=== PATIENT | female | born 1990 | race Caucasian/White ===

== ENCOUNTER → 2020-02-10 15:19 | Outpatient (CLI) | payer BC, SELFPAY ==
--- NOTE | ~2020-02-10 | US_ITS ---
EXAMINATION: US pelvic complete w TV EXAM DATE: 02/10/2020 15:42 INDICATION: Abnormal uterine bleeding. Prolonged periods. TECHNIQUE: Pelvic transabdominal and transvaginal sonogram was performed. There are multiple graysca le and Doppler images available for interpretation. There is no prior study for comparison. FINDINGS: Uterus measures 8.8 x 3.5 x 4.3 cm, and is morphologically normal. Endometrial stripe ellen sures 7 mm, within normal limits. There is no free pelvic fluid. Right adnexa: The ovary measures 4.2 x 2.3 x 2.6 cm and is morphologically normal. Ovarian vascular f low confirmed. Left adnexa: The ovary measures 4.6 x 3.2 x 3.7 cm and is morphologically normal. Ovarian vascular fl ow confirmed. IMPRESSION: 1. Unremarkable pelvic ultrasound exam. Reviewed, dictated and finalized at location B.
== END ==
PROVIDERS: PCP Family Medicine; Visit Provider Obstetrics & Gynecology
DX: N93.9 Abnormal uterine and vaginal bleeding, unspecified (principal)
CPT/HCPCS: 76830; 76856

== ENCOUNTER → 2020-05-01 15:43 | Outpatient (CLI) | payer BC, SELFPAY ==
--- NOTE | ~2020-05-01 | US_ITS ---
EXAMINATION: US OB <=14 wk fetus w TV DATE: 05/01/2020 16:12 INDICATION: Hypertrophy of the ureters, first trimester dating TECHNIQUE: Real-time pelvic transabdominal and transvaginal ultrasound was performed. COMPARISON: None. FINDINGS: The uterus measures 8.6 x 4.8 x 6.0 cm. There is an intrauterine gestational sac. There is a 10 mm x 3 mm x 6 mm hypoechoic area adjacent to the gestational sac. A yolk sac is identified. Fet al heart motion is identified measuring 120 beats per minute (bpm) by M-mode Doppler. The crown rump length measures 6 , which correlates with an estimated gestational age of 6 weeks and 1 day(s) (+/-) 4 day(s). The right ovary measures 4.1 x 3.2 x 4.3 cm. The left ovary measures 3.2 x 3.6 x 3.3 cm. There is nor mal vascular flow in the ovaries. There is no free fluid in the pelvis. IMPRESSION: 1. Live intrauterine with an estimated gestational age of 6 weeks and 1 day(s) (+/-) 4 day( s) and an estimated delivery date of 12/24/2020. 2. Small subchorionic hematoma. Reviewed, dictated and finalized at location B. IMPRESSION: 1. Live intrauterine with an estimated gestational age of 6 weeks and 1 day(s) (+/-) 4 day(s) and an estimated delivery date of 12/24/2020. 2. Small subchorionic hematoma.
== END ==
PROVIDERS: Visit Provider Obstetrics & Gynecology
DX: N85.2 Hypertrophy of uterus (principal)
CPT/HCPCS: 76801; 76817

== ENCOUNTER 2020-06-10 15:32 | Outpatient (CLI) | payer BC, SELFPAY ==
--- NOTE | ~2020-06-10 | US_ITS ---
EXAMINATION: US OB <= 14 weeks fetus DATE: 06/10/2020 15:59 INDICATION: Vaginal bleeding TECHNIQUE: Real-time transabdominal obstetric ultrasound. FINDINGS: Ultrasound dated 05/01/2020 The uterus measures 11.2 x 8.3 x 7.8 cm. There is an intrauterine gestational sac, with pole id entified. The crown rump length measures 4.99 cm, which correlates with a estimated gestational age of 11 weeks 5 days. heart tones are identified measuring 155 BPM. IMPRESSION: 1. SL IUP with an EGA of 11 weeks, 6 days (EDC by current ultrasound of 12/24/2020). Reviewed, dictated and finalized at location B. IMPRESSION: 1. SL IUP with an EGA of 11 weeks, 6 days (EDC by current ultrasound of 021).
== END 2020-06-10 15:33 | disposition home or self-care (01) ==
PROVIDERS: PCP Family Medicine; Visit Provider Obstetrics & Gynecology
DX: O46.91 Antepartum hemorrhage, unspecified, first trimester (principal); Z3A.11 11 weeks gestation of pregnancy
CPT/HCPCS: 76801

== ENCOUNTER 2020-07-13 11:12 | Outpatient (CLI) | payer BC, SELFPAY ==
[2020-07-13 12:45] LABS: Rubella IgG Antibody 42.7 IU/ML
== END 2020-07-13 11:13 | disposition home or self-care (01) ==
LOC: ANHLAB 11:13
PROVIDERS: PCP Family Medicine; Visit Provider Obstetrics & Gynecology
DX: Z34.92 Encounter for supervision of normal pregnancy, unspecified, second trimester (principal); Z3A.16 16 weeks gestation of pregnancy
CPT/HCPCS: 36415; 84443; 86762

== ENCOUNTER 2020-09-08 12:39 | Outpatient (RCR) | payer BC, SELFPAY ==
[2020-09-08 14:04] LABS: Basophils Absolute Auto 0.1 K/mm3 (0.0-0.1); Basophils Percent Auto 0.4 % (0.2-1.2); Eosinophils Absolute Auto 0.2 K/mm3 (0-0.3); Eosinophils Percent Auto 1.6 % (0-4.4); Hematocrit 35.9 % (37.0-47.0); Hemoglobin 12.2 g/dL (12.0-15.0); Immature Granulocyte Absolute 0.28 K/mm3 (0.00-0.031); Immature Granulocyte Percent A 2.2 % (0-0.5); Lymphocytes Absolute Auto 1.71 K/mm3 (0.9-3.2); Lymphocytes Percent Auto 13.3 % (18.3-44.2); Mean Corpuscular Hemoglobin 31.5 pg (26-34); Mean Corpuscular Volume 92.8 fl (80-100); Mean Platelet Volume 10.5 fl (7.4-10.4); Monocytes Absolute Auto 0.9 K/mm3 (0.1-0.6); Monocytes Percent Auto 7.3 % (2.6-8.5); Neutrophils Absolute Auto 9.6 K/mm3 (1.3-6.7); Neutrophils Percent Auto 75.2 % (45.5-73.1); Platelet Count Result 180 k/mm3 (150-375); Red Blood Count 3.87 M/mm3 (4.2-5.4); Red Cell Distribution Width 13.1 % (11.5-14.5); White Blood Count 12.8 K/mm3 (4.5-10.0)
[2020-09-08 14:18] LABS: Glucose 1 Hour PP 50gm Dose 99 mg/dL
[2020-09-09] MEDS: RHO(D) IMMUNE GLOBULIN 300 MCG SYRINGE IM (13:16)
== END 2020-12-07 23:59 | disposition home or self-care (01) ==
LOC: ANHLAB 12:39
PROVIDERS: PCP Family Medicine; Visit Provider Obstetrics & Gynecology
DX: Z29.13 Encounter for prophylactic Rho(D) immune globulin (principal); O36.0190 Maternal care for anti-D [Rh] antibodies, unspecified trimester, not applicable or unspecified; Z3A.00 Weeks of gestation of pregnancy not specified
CPT/HCPCS: 36415; 82947; 85025; 85461; 90384; 96372; J2790

== ENCOUNTER 2020-11-03 11:55 | Outpatient (CLI) | payer BC, SELFPAY ==
[2020-11-03 12:13] LABS: Basophils Absolute Auto 0.1 K/mm3 (0.0-0.1); Basophils Percent Auto 0.4 % (0.2-1.2); Eosinophils Absolute Auto 0.1 K/mm3 (0-0.3); Eosinophils Percent Auto 1.2 % (0-4.4); Hematocrit 33.5 % (37.0-47.0); Hemoglobin 10.9 g/dL (12.0-15.0); Immature Granulocyte Percent A 1.8 % (0-0.5); Lymphocytes Absolute Auto 1.52 K/mm3 (0.9-3.2); Lymphocytes Percent Auto 13.4 % (18.3-44.2); Mean Corpuscular HGB Conc 32.5 g/dl (32-36); Mean Corpuscular Hemoglobin 29.5 pg (26-34); Mean Corpuscular Volume 90.5 fl (80-100); Monocytes Absolute Auto 1.2 K/mm3 (0.1-0.6); Monocytes Percent Auto 10.5 % (2.6-8.5); Neutrophils Absolute Auto 8.2 K/mm3 (1.3-6.7); Neutrophils Percent Auto 72.7 % (45.5-73.1); Platelet Count Result 172 k/mm3 (150-375); Red Cell Distribution Width 12.9 % (11.5-14.5); White Blood Count 11.3 K/mm3 (4.5-10.0)
[2020-11-03 13:04] LABS: HIV 1/2 Ab P24 Ag Result Negative (Negative)
[2020-11-04 11:30] LABS: Rapid Plasma Reagin Non-Reactive (NonReactive)
== END 2020-11-03 11:56 | disposition home or self-care (01) ==
PROVIDERS: PCP Family Medicine; Visit Provider Obstetrics & Gynecology
DX: Z34.93 Encounter for supervision of normal pregnancy, unspecified, third trimester (principal); Z3A.30 30 weeks gestation of pregnancy
CPT/HCPCS: 36415; 85025; 86592; 86703; G0432

== ENCOUNTER 2020-12-02 13:22 | Outpatient (CLI) | payer BC, SELFPAY ==
[2020-12-02 13:46] VITALS: BP 107/63; PULSE 95
[2020-12-02 14:01] VITALS: BP 110/74; PULSE 97
[2020-12-02 14:01] LABS: Basophils Percent Auto 0.3 % (0.2-1.2); Eosinophils Absolute Auto 0.1 K/mm3 (0-0.3); Eosinophils Percent Auto 0.7 % (0-4.4); Hematocrit 34.8 % (37.0-47.0); Hemoglobin 11.6 g/dL (12.0-15.0); Immature Granulocyte Absolute 0.15 K/mm3 (0.00-0.031); Immature Granulocyte Percent A 1.3 % (0-0.5); Lymphocytes Absolute Auto 1.84 K/mm3 (0.9-3.2); Lymphocytes Percent Auto 15.3 % (18.3-44.2); Mean Corpuscular HGB Conc 33.3 g/dl (32-36); Mean Corpuscular Hemoglobin 30.2 pg (26-34); Mean Corpuscular Volume 90.6 fl (80-100); Mean Platelet Volume 12.2 fl (7.4-10.4); Monocytes Absolute Auto 1.2 K/mm3 (0.1-0.6); Monocytes Percent Auto 9.8 % (2.6-8.5); Neutrophils Absolute Auto 8.7 K/mm3 (1.3-6.7); Neutrophils Percent Auto 72.6 % (45.5-73.1); Platelet Count Result 158 k/mm3 (150-375); Red Blood Count 3.84 M/mm3 (4.2-5.4); Red Cell Distribution Width 17.1 % (11.5-14.5)
[2020-12-02 14:07] LABS: Add Urine Microscopic? YES; Appearance Urine Cloudy (Clear); Bacteria Urine Trace /hpf; Bilirubin Urine Negative (Negative); Blood Urine 3+ (Negative); Color Urine Yellow (Yellow); Glucose Urine UA Negative (Negative); Ketones Urine Negative (Negative); Leukocyte Esterase Ur 1+ LEU/UL (NEGATIVE); Mucus Urine Moderate /lpf; Nitrate Urine Negative (Negative); Protein Urine 1+ mg/dL (Negative); RBC Urine 0-2 /hpf (0-2); Specific Grav Ur 1.031 (1.001-1.035); Squamous Epithelial Cell Urine Many /hpf (Few); Urobilinogen Urine Negative mg/dL (<2.0)
[2020-12-02 14:16] VITALS: BP 102/69; PULSE 93
[2020-12-02 14:17] VITALS: BP 102/69; PULSE 94
[2020-12-02 14:17] LABS: Alanine Aminotransferase 23 U/L (4-35); Albumin Level 3.3 g/dL (3.5-5.1); Alkaline Phosphatase 115 U/L (38-126); Anion Gap 2 mmol/L (8-16); Aspartate Amino Transferase 33 U/L (14-36); Bilirubin,Total 0.2 mg/dL (0.2-1.3); Blood Urea Nitrogen 13 mg/dL (7-17); Calcium 8.7 mg/dL (8.4-10.2); Carbon Dioxide 24 mmol/L (22-30); Chloride 108 mmol/L (98-107); Estimated Glomerular Filt Rate > 60; Glucose 77 mg/dL (65-105); Potassium 3.5 mmol/L (3.4-5.0); Sodium 134 mmol/L (137-145)
[2020-12-02 14:21] LABS: Creatinine Urine 193.5 mg/dL; Total Protein Urine Random 16 mg/dL; Ur Ttl Prot Creatinine Ratio 0.08 mg/mg (0-0.20)
[2020-12-02 14:30] VITALS: BP 108/75; PULSE 96
--- NOTE | 2020-12-02 14:48 | PC.NURSE ---
called,reported labs. Orders received to discharge pt home.
== END 2020-12-02 14:56 | disposition home or self-care (01) ==
LOC: ANHOBOP 13:27 → ANHLDR 13:27
PROVIDERS: PCP Family Medicine; Visit Provider Obstetrics & Gynecology
DX: O13.9 Gestational [pregnancy-induced] hypertension without significant proteinuria, unspecified trimester (principal); Z3A.00 Weeks of gestation of pregnancy not specified
CPT/HCPCS: 36415; 59025; 80053; 81001; 82570; 84156; 84550; 85025; 87086; 99199

== ENCOUNTER 2020-12-07 10:25 | Inpatient (IN) | payer BC, SELFPAY ==
[2020-12-07] VITALS (124 sets, daily range): BP systolic 105–163; BP diastolic 51–136; PULSE 77–259; RESP 18–20; TEMP 36.3–37.3; O2SAT 75–100; BMI 25.9
[2020-12-07] MEDS: LACTATED RINGERS 1,000 ML 125 ML IV CONT ×3 (11:13→18:54)
[2020-12-07] MEDS: OXYTOCIN 30 UNITS/NS 500 ML 30 UNITS/500 ML BAG 6 UNITS IV CONT (11:14)
[2020-12-07 11:23] LABS: Basophils Percent Auto 0.3 % (0.2-1.2); Eosinophils Percent Auto 0.3 % (0-4.4); Hematocrit 38.3 % (37.0-47.0); Hemoglobin 12.6 g/dL (12.0-15.0); Immature Granulocyte Absolute 0.12 K/mm3 (0.00-0.031); Immature Granulocyte Percent A 1.1 % (0-0.5); Lymphocytes Absolute Auto 1.54 K/mm3 (0.9-3.2); Lymphocytes Percent Auto 14.3 % (18.3-44.2); Mean Corpuscular HGB Conc 32.9 g/dl (32-36); Mean Corpuscular Hemoglobin 30.4 pg (26-34); Mean Corpuscular Volume 92.3 fl (80-100); Mean Platelet Volume 12.1 fl (7.4-10.4); Monocytes Percent Auto 9.5 % (2.6-8.5); Neutrophils Percent Auto 74.5 % (45.5-73.1); Platelet Count Result 149 k/mm3 (150-375); Red Blood Count 4.15 M/mm3 (4.2-5.4); White Blood Count 10.8 K/mm3 (4.5-10.0)
[2020-12-07 11:34] LABS: Alanine Aminotransferase 24 U/L (4-35); Albumin Level 3.5 g/dL (3.5-5.1); Alkaline Phosphatase 119 U/L (38-126); Anion Gap 6 mmol/L (8-16); Aspartate Amino Transferase 32 U/L (14-36); Bilirubin,Total 0.2 mg/dL (0.2-1.3); Blood Urea Nitrogen 10 mg/dL (7-17); Calcium 8.6 mg/dL (8.4-10.2); Carbon Dioxide 22 mmol/L (22-30); Chloride 108 mmol/L (98-107); Estimated CRCL calculation 95 ml/min; Estimated Glomerular Filt Rate > 60; Glucose 70 mg/dL (65-105); Potassium 3.7 mmol/L (3.4-5.0); Sodium 136 mmol/L (137-145); Uric Acid 4.6 mg/dL (2.5-7.5)
--- NOTE | 2020-12-07 12:09 | LDADM ---
This patient, Latha Kennedy, was admitted to Labor/Delivery/Recovery 109 on 12/07/20 at 10:25. Plans for labor, pain management and were discussed with patient. Patient/family oriented to hospital policies and general routines including ID bracelet, bed and alarms, visiting hours, pain management, procedures, bathroom and other care routines, personal items, smoking policy, room service/diet and guest tray routines, security routines, and visiting hours. Patient/Family are encouraged to report perceived risks to care and to ask questions if they do not understand what they are told or what they should do. See OBIX for further documentation.
--- NOTE | 2020-12-07 12:19 | WPDANESEPP ---
Anes - Eval Pre Procedure Procedure: labor epidural Date/Time: 12/07/20 12:19 Pre Op Diagnosis: Induction of Labor Patient Data Age: 30 Gender: F Height: 1.68 m Weight: 73 kg Last Vital Signs Temp 37.3 C 12/07/20 10:46 Pulse 100 12/07/20 12:15 BP 122/72 12/07/20 12:15 Allergies Allergy/AdvReac Type Severity Reaction Status Date / Time trimethoprim Allergy Intermediate Hives Verified 12/07/20 08:58 Sulfa (Sulfonamide Allergy Unknown shortness Verified 12/07/20 08:58 Antibiotics) of breath, sweating, nausea Home Medications Medication Instructions Recorded Confirmed Type vitamins no.147-iron 1 tablet PO DAILY 05/22/20 11/27/20 History gluconate 13 mg-folic acid 1 mg tablet diphth,pertus(acell),tetanus 2.5 0.5 ml IM ONCE #0.5 ml 10/20/20 11/27/20 Rx Lf unit-8 mcg-5 Lf/0.5 mL IM susp hydrocortisone acetate 25 mg 25 mg RECTAL DAILY PRN #12 ea 10/20/20 11/27/20 Rx rectal suppository ferrous sulfate 325 mg PO BID 11/24/20 11/27/20 History Laboratory Tests 12/07/20 12/07/20 12/07/20 11:06 11:06 11:06 WBC 10.8 K/mm3 H K/mm3 (4.5-10.0) RBC 4.15 M/mm3 L M/mm3 (4.2-5.4) Hgb 12.6 g/dL g/dL (12.0-15.0) Hct 38.3 % % (37.0-47.0) MCV 92.3 fl fl (80-100) MCH 30.4 pg pg (26-34) MCHC 32.9 g/dl g/dl (32-36) RDW 18.0 % H % (11.5-14.5) Plt Count 149 k/mm3 L k/mm3 (150-375) MPV 12.1 fl H fl (7.4-10.4) Immature Gran % (Auto) 1.1 % H % (0-0.5) Neut % (Auto) 74.5 % H % (45.5-73.1) Lymph % (Auto) 14.3 % L % (18.3-44.2) [place] % (Auto) 9.5 % H % (2.6-8.5) Eos % (Auto) 0.3 % % (0-4.4) Baso % (Auto) 0.3 % % (0.2-1.2) Lymph # (Auto) 1.54 K/mm3 K/mm3 (0.9-3.2) [place] # (Auto) 1.0 K/mm3 H K/mm3 (0.1-0.6) Eos # (Auto) 0.0 K/mm3 K/mm3 (0-0.3) Baso # (Auto) 0.0 K/mm3 K/mm3 (0.0-0.1) Abs Immat Gran (auto) 0.12 K/mm3 H K/mm3 (0.00-0.031) Absolute Neuts (auto) 8.0 K/mm3 H K/mm3 (1.3-6.7) Absolute Nucleated RBC 0.0 K/mm3 K/mm3 (0.0-0.012) Nucleated RBC % 0.0 % % (0.0-0.2) Sodium 136 mmol/L L mmol/L (137-145) Potassium 3.7 mmol/L mmol/L (3.4-5.0) Chloride 108 mmol/L H mmol/L (98-107) Carbon Dioxide 22 mmol/L mmol/L (22-30) Anion Gap 6 mmol/L L mmol/L (8-16) BUN 10 mg/dL mg/dL (7-17) Creatinine 0.70 mg/dL mg/dL (0.7-1.0) Estim Creat Clear Calc 95 ml/min ml/min Estimated GFR > 60 (59 - ) Glucose 70 mg/dL mg/dL (65-105) Uric Acid 4.6 mg/dL mg/dL (2.5-7.5) Calcium 8.6 mg/dL mg/dL (8.4-10.2) Total Bilirubin 0.2 mg/dL mg/dL (0.2-1.3) AST 32 U/L U/L (14-36) ALT 24 U/L U/L (4-35) Alkaline Phosphatase 119 U/L U/L (38-126) Total Protein 7.0 g/dL g/dL (6.3-8.2) Albumin 3.5 g/dL g/dL (3.5-5.1) RPR Pending Blood Type Antibody Screen 12/07/20 12/07/20 11:06 11:06 WBC RBC Hgb Hct MCV MCH MCHC RDW Plt Count MPV Immature Gran % (Auto) Neut % (Auto) Lymph % (Auto) [place] % (Auto) Eos % (Auto) Baso % (Auto) Lymph # (Auto) [place] # (Auto) Eos # (Auto) Baso # (Auto) Abs Immat Gran (auto) Absolute Neuts (auto) Absolute Nucleated RBC Nucleated RBC % Sodium Cancelled Potassium Cancelled Chloride Cancelled Carbon Dioxide Cancelled Anion Gap Cancelled BUN Cancelled Creatinine Cancelled Estim Creat Clear
[2020-12-07 13:01] LABS: Creatinine Urine 49.8 mg/dL; Total Protein Urine Random 9 mg/dL; Ur Ttl Prot Creatinine Ratio 0.18 mg/mg (0-0.20)
--- NOTE | 2020-12-07 15:57 | PM.IMHP ---
H&P: HPI History of Present Illness Date/Time: 12/07/20 15:57 Patient at 37 2/7 weeks presented for medical induction of labor for gestational hypertension. She denies headache scotomata or RUQ pain. BP last week 140/80 in office. Labs normal. BP in office today 140/84. PNC uncomplicated. Labs reviewed. GBS negative. Chief Complaint: Hypertension. Review of Systems Review of Systems: All systems reviewed & are unremarkable except as noted in HPI and below Constitutional: Constitutional: Reports no additional constitutional complaints and Denies headache(s) Eyes: Eyes: Denies spots in vision ENT: Reports system reviewed and no additional complaints, except as documented and Denies headache(s) Cardiovascular: Cardiovascular: Denies chest pain and Denies dyspnea Respiratory: Respiratory: Denies dyspnea Gastrointestinal: Gastrointestinal: Reports no additional gastrointestinal complaints Genitourinary: Genitourinary: Reports amenorrhea Musculoskeletal: Musculoskeletal: Reports no additional musculoskeletal complaints Integumentary/Breasts: Skin/Breast: Denies breast mass and Denies rash Neurologic: Denies headache(s) Psychiatric: Psychiatric: Reports no additional psychiatric complaints [facility] Past Medical History Medical History Anxiety Gestational hypertension Surgical History Surgical History History of tonsillectomy Family History Family History Father Diabetes mellitus Hypertension Cerebrovascular accident Congestive heart failure Mother Endometriosis Hyperglycemia Osteoporosis Hypotension Social History Social History Smoking status: Never smoker Second hand tobacco smoke exposure: No Alcohol intake: former Substance use: never Spiritual care concerns: No Meds Home Medications and Allergies Home Medications Medication Instructions Recorded Confirmed Type vitamins no.147-iron 1 tablet PO DAILY 05/22/20 12/07/20 History gluconate 13 mg-folic acid 1 mg tablet diphth,pertus(acell),tetanus 2.5 0.5 ml IM ONCE #0.5 ml 10/20/20 12/07/20 Rx Lf unit-8 mcg-5 Lf/0.5 mL IM susp hydrocortisone acetate 25 mg 25 mg RECTAL DAILY PRN #12 ea 10/20/20 12/07/20 Rx rectal suppository ferrous sulfate 325 mg PO BID 11/24/20 12/07/20 History Allergies Allergy/AdvReac Type Severity Reaction Status Date / Time trimethoprim Allergy Intermediate Hives Verified 12/07/20 08:58 Sulfa (Sulfonamide Allergy Unknown shortness Verified 12/07/20 08:58 Antibiotics) of breath, sweating, nausea Vital Signs Vital Signs - 24 hr 12/07/20 10:46 12/07/20 11:15 12/07/20 11:30 Temperature 99.2 F Pulse Rate 110 H 112 H Blood Pressure 128/84 135/84 12/07/20 11:45 12/07/20 12:00 12/07/20 12:15 Temperature Pulse Rate 105 H 105 H 100 Blood Pressure 117/86 123/81 122/72 12/07/20 12:30 12/07/20 12:45 12/07/20 13:00 Temperature 98.5 F Pulse Rate 101 H 105 H 110 H Blood Pressure 123/74 122/78 129/80 12/07/20 13:15 12/07/20 13:30 12/07/20 13:45 Temperature Pulse Rate 103 H 108 H 94 Blood Pressure 127/79 123/102 H 121/76 12/07/20 14:00 12/07/20 14:15 12/07/20 14:30 Temperature 98.2 F Pulse Rate 103 H 99 97 Blood Pressure 119/82 121/75 135/87 12/07/20 14:45 12/07/20 15:00 12/07/20 15:15 Temperature Pulse Rate 101 H 103 H 96 Blood Pressure 121/77 125/75 122/81 12/07/20 15:30 12/07/20 15:45 Temperature Pulse Rate 130 H 109 H Blood Pressure 120/85 119/80 Exam Const: General: no acute distress Eyes: General: appearance normal, both eyes and all related structures Resp: Effort & Inspection: normal respiratory effort Cardio: Rate: regular rate GI: Other: Gravid no fundal ten
[2020-12-07] MEDS: FAMOTIDINE 20 MG/2 ML VIAL IV PUSH (20:41)
--- NOTE | 2020-12-07 23:39 | PM.OBPRVD ---
OB - Delivery Note Procedure Delivery date: 12/07/20 Procedure: Spontaneous vaginal delivery events: Induced HTN Intrapartal events: None Induction method: per pitocin protocol Delivery augmentation: rupture of membranes Delivery monitor: external FHT Route of delivery: Episiotomy description: Left Mediolateral (for deceleration of heart rate to 70.) Laceration Description: Labial (small right inner labial) Delivery repair: vicryl (3.0 vicryl) Specimen: Yes (placenta and cord) Quantitative Blood Loss (ml): 250 Anesthesia type: Epidural Disposition: floor Complications: None Narrative: Patient admitted for [facility] for gestational hypertension. Labs normal. Cervix on admission 2/70%/-2. Pitocin initiated. She had AROM clear at approximately 1640. Clear fluid. At that time cervix was 3/75% -2. She progressed into active labor. She received an epidural and a second epidural needed to be placed. She then had adequate analgesia. She progressed to complete. She pushed for 19minutes. tracing with heart rate deceleration to 70. Left mediolateral episiotomy performed and delivered. There was a left compound hand presentation and the cord was present also. It was not a nuchal cord. The rest of the was delivered. was vigorously crying upon delivery and placed on maternal abdomen. Delayed cord clamping for 30sec until cord apulsatile. Cord gases and cord blood obtained. Placenta delivered spontaneously and intact. The insertion was marginal. Will send to pathology. Episiotomy repaired with a continuous stitch of 3.0 vicryl. She had a small right inner labia minora tear which was hemostatic and did not require suture repair. She tolerated procedure well. [place] Baby Date of : 12/07/20 Time of : 23:09 Weeks of gestation at delivery: 37 Infant gender: Female Weight (pounds): 6 Weight (ounces): 3 presentation: vertex (left hand compound presentation) position: Right Occiput Anterior Placenta delivery description: Spontaneous (Marginal cord insertion) score one minute: 9 score five minutes: 9
[2020-12-07] MEDS: OXYTOCIN 30 UNITS/NS 500 ML 30 UNITS/500 ML BAG 125 UNITS IV CONT (23:42)
[2020-12-08] VITALS (12 sets, daily range): BP systolic 113–137; BP diastolic 69–86; PULSE 84–116; RESP 16–18; TEMP 36.4–37; O2SAT 98–100
[2020-12-08] MEDS: WITCH HAZEL 40 PADS 1 PAD TOPICAL (01:04)
[2020-12-08] MEDS: IBUPROFEN 600 MG TABLET PO ×4 (01:04→19:38)
[2020-12-08] MEDS: BENZOCAINE 20% AER SPR (*SP) 56 GM CAN 1 SPRAY TOPICAL (01:04)
[2020-12-08] MEDS: DIBUCAINE 1% OINTMENT 30 GM TUBE 1 APPLIC TOPICAL ×2 (01:04→06:30)
[2020-12-08] MEDS: ONDANSETRON INJ 4 MG/2 ML VIAL IV PUSH (02:32)
--- NOTE | 2020-12-08 03:11 | OBPPTRN ---
Patient transferred to post room #280 via wheelchair. Support person, Larry, present. Oriented to unit, room, information board, rooming in, admission packet and security measures. Patient verbalizes understanding.
[2020-12-08 03:18] LABS: Hematocrit 34.2 % (37.0-47.0); Hemoglobin 11.3 g/dL (12.0-15.0)
[2020-12-08] MEDS: LANOLIN (LANSINOH) 7.5 GM CREAM 1 APPLIC TOPICAL (06:30)
--- NOTE | 2020-12-08 08:06 | PM.OBPNVD ---
OB - PN: Subj Subjective Date/time seen: 12/08/20 08:06 Patient comments: no complaints, pain well controlled and other (Lochia similar to heavy menses. No blood clots) [place] baby status: doing well Narrative: She denies KENNEDY, visual changes. OB - PN: Obj Data Labs CBC & Chem 7: 12/08/20 03:04 12/07/20 11:06 Labs: Laboratory Results - last 24 hr 12/07/20 12/07/20 12/07/20 11:06 11:06 11:06 WBC 10.8 H RBC 4.15 L Hgb 12.6 Hct 38.3 MCV 92.3 MCH 30.4 MCHC 32.9 RDW 18.0 H Plt Count 149 L MPV 12.1 H Immature Gran % (Auto) 1.1 H Neut % (Auto) 74.5 H Lymph % (Auto) 14.3 L [place] % (Auto) 9.5 H Eos % (Auto) 0.3 Baso % (Auto) 0.3 Lymph # (Auto) 1.54 [place] # (Auto) 1.0 H Eos # (Auto) 0.0 Baso # (Auto) 0.0 Abs Immat Gran (auto) 0.12 H Absolute Neuts (auto) 8.0 H Absolute Nucleated RBC 0.0 Nucleated RBC % 0.0 Sodium 136 L Potassium 3.7 Chloride 108 H Carbon Dioxide 22 Anion Gap 6 L BUN 10 Creatinine 0.70 Estim Creat Clear Calc 95 Estimated GFR > 60 Glucose 70 Uric Acid 4.6 Calcium 8.6 Total Bilirubin 0.2 AST 32 ALT 24 Alkaline Phosphatase 119 Total Protein 7.0 Albumin 3.5 U Random Total Protein Urine Creatinine Protein/Creat Ratio 2 Blood Type O Negative Antibody Screen Negative 12/07/20 12/07/20 12/08/20 11:06 12:43 03:04 WBC RBC Hgb 11.3 L Hct 34.2 L MCV MCH MCHC RDW Plt Count MPV Immature Gran % (Auto) Neut % (Auto) Lymph % (Auto) [place] % (Auto) Eos % (Auto) Baso % (Auto) Lymph # (Auto) [place] # (Auto) Eos # (Auto) Baso # (Auto) Abs Immat Gran (auto) Absolute Neuts (auto) Absolute Nucleated RBC Nucleated RBC % Sodium Cancelled Potassium Cancelled Chloride Cancelled Carbon Dioxide Cancelled Anion Gap Cancelled BUN Cancelled Creatinine Cancelled Estim Creat Clear Calc Cancelled Estimated GFR Cancelled Glucose Cancelled Uric Acid Calcium Cancelled Total Bilirubin Cancelled AST Cancelled ALT Cancelled Alkaline Phosphatase Cancelled Total Protein Cancelled Albumin Cancelled U Random Total Protein 9 Urine Creatinine 49.8 Protein/Creat Ratio 2 0.18 Blood Type Antibody Screen OB - PN A/P Assessment and Plan (1) Gestational hypertension: Code(s): O13.9 - Gestational [-induced] hypertension without significant proteinuria, unspecified trimester Status: Acute Assessment and Plan: BP normal since delivery and asymptomatic. Continue to observe Plan day: 1 (s/p vaginal delivery, doing well) Plan: routine care Time Spent With Patient Time: Total time spent is greater than 50% in coordination of care (as documented) at patient's floor/unit and/or counseling patient: Exam Const: General: no acute distress GI: Inspection: other (Fundus firm and nontender at umbilicus) GI Palp: Yes Soft to palpation and No Tenderness to palpation present (GI) Extrem: General: no edema
--- NOTE | 2020-12-08 09:20 | PC.NURSE ---
Mother called out for assist with feeding. Consulted with patient, mother reports has fed well since . Mother has nipple discomfort with and latch during Reviewed nipple care of lanolin, warm compresses several times per day as needed. Both nipples are slightly reddened. Reviewed feeding cues, frequencies, duration of feedings, feeding elimination flow sheet, and signs of adequate intake. Demonstrated stimulation techniques to wake for feeding. Assisted with to breast. Reviewed positioning/alignment in cross cradle, holding breast in U hold and guided asymmetrical latch on. Infant very sleepy attempt for 15 minutes with no latch. skin to skin for 30 and attempted again. remains sleepy. Suggested to give a small amount of formula to infant mouth and to nipple to entice to suckle. was able to latch within a few attempts. Infant nursed eagerly, with steady draws and frequent swallowing noted. Reviewed signs of a correct latch, effective nursing and suck swallow ratio. Mother reported tenderness at times, infant had slipped to shallow latch. Demonstrated how to adjust latch more deeply while feeding. Mother quickly reports she can feel infant is latched more deeply and has minimal tenderness. Suggested to stimulate while feeding to keep infant awake and nursing effectively for increased stimulation and increased intake. Instructed mother to call out for RN assistance if she is unable to latch for feeding or she has discomfort with nursing. Instructed feeding should be initiated three hours from start of last feeding or if feeding cues are noted before. Mother voiced understanding of information shared.
[2020-12-08] MEDS: ACETAMINOPHEN 325 MG TABLET 650 MG PO ×2 (10:46→17:00)
[2020-12-08] MEDS: MULTIVIT/MIN/PREN/FOL AC/IRON TABLET 1 TAB PO (10:46)
[2020-12-08 13:25] LABS: Rapid Plasma Reagin Non-Reactive (NonReactive)
--- NOTE | 2020-12-08 13:25 | PC.NURSE ---
Mother called out for assist with feeding. FOB has supplemented 9 mls of formula, reporting was sleepy and they attempted to wake to feed with no successful latch. Demonstrated stimulation techniques to wake for feeding. Several minutes to wake infant. Assisted with to breast. Reviewed positioning/alignment in cross cradle, holding breast in U hold and guided asymmetrical latch on. Infant sleepy attempt for 5 minutes with no latch. Infant was able to latch within a few attempts. nursed eagerly, with steady draws and frequent swallowing noted. Reviewed signs of a correct latch, effective nursing and suck swallow ratio. Mother reported tenderness at times, had slipped to shallow latch. Demonstrated how to adjust latch more deeply while feeding. Mother can feel infant is latched more deeply and has minimal tenderness. Suggested to stimulate infant while feeding to keep awake and nursing effectively for increased stimulation and increased intake. Instructed mother to call out for RN assistance if she is unable to latch for feeding or she has discomfort with nursing. Instructed feeding should be initiated three hours from start of last feeding or if feeding cues are noted before. Mother voiced understanding of information shared.
--- NOTE | 2020-12-08 13:44 | WPDANLDPN2 ---
Anes-Prog Note L&D Date/Time: 12/08/20 13:44 Comfortable throughout: labor and delivery Neuraxial method: epidural Epidural/Spinal procedure site: clean & non-tender Neuro status: Neuro function grossly intact. Cardiovascular status: normal Respiratory status: normal Airway patency: baseline Mental status: baseline Post-Op hydration status: normal Vital Signs: Last Vital Signs Temp 37.0 C 12/08/20 12:05 Pulse 85 12/08/20 12:05 Resp 18 12/08/20 12:05 BP 113/79 12/08/20 12:05 Pulse Ox 99 12/08/20 12:05 Pain score (VAS): 0 I/O: Intake & Output 12/07/20 12/08/20 12/08/20 23:59 07:59 15:59 Intake Total 2900 900 Output Total 400 78 Balance 2500 822 Post-procedural complaints: none Patient feedback: Patient satisfied with anesthetic care.
[2020-12-08] MEDS: DOCUSATE SODIUM 100 MG CAPSULE PO (19:37)
[2020-12-09] MEDS: ACETAMINOPHEN 325 MG TABLET 650 MG PO (03:25)
[2020-12-09] MEDS: IBUPROFEN 600 MG TABLET PO ×2 (03:25→10:25)
[2020-12-09 07:45] VITALS: BP 110/67; PULSE 84; RESP 16; TEMP 36.9; O2SAT 100
--- NOTE | 2020-12-09 09:01 | P.PNOB_ITS ---
OB - PN: Subj Subjective Date/time seen: 12/09/20 09:01 Her pain is better. Lochia decreasing. No headache, scotomata or right upper quad pain. Patient comments: pain well controlled, tolerating diet and other (Decreasing lochia.) baby status: doing well and nursing well [place] feeding status: exclusively breast feeding OB - PN: Obj Data Labs CBC & Chem 7: 12/08/20 03:04 12/07/20 11:06 Labs: Laboratory Results - last 24 hr 12/07/20 11:06 RPR Non-reactive OB - PN A/P Plan day: 2 Plan: discharge home and other Comments: Patient doing well. Follow up 4-6 weeks. Discharge instructions provided. Time Spent With Patient Time: Total time spent is greater than 50% in coordination of care (as documented) at patient's floor/unit and/or counseling patient: Time with patient: less than 15 minutes Exam Psych: Affect: normal affect Other: Abd: fundus firm below umbilicus, nontender Ext: nontender, 1+ edema bilat
--- NOTE | 2020-12-09 09:04 | PM.OBDSVD ---
DS: Admitting Diagnosis Admitting Diagnosis Admitting Diagnosis: Gestational hypertension DS: Discharge Diagnosis Discharge Diagnosis (1) Delivery normal: Code(s): O80 - Encounter for full-term uncomplicated delivery Status: Acute (2) Gestational hypertension: Code(s): O13.9 - Gestational [-induced] hypertension without significant proteinuria, unspecified trimester Status: Acute OB - DS: Summary Hospital Course Time spent discussing smoking cessation with patient: 3 to 10 minutes OB Procedures : PIH Mgmt OB Procedures Intrapartum: Spontaneous Vag Delivery OB Procedures: : None and RHo (D) lg Peripartum Data Delivery Method: Natural Vaginal Episiotomy description: Left Mediolateral complications: none Time Spent with Patient Time attestation: Total time spent providing and/or coordinating discharge services: DS: Data Data Completed and Pending Pending studies at discharge: Pending at discharge 12/07/20 23:14 Surgical [PTH] Routine Labs on day of discharge: Labs from last 24 hours 12/07/20 11:06 RPR Non-reactive Discharge Plan Discharge Attending physician on discharge: Ralph Loco Consulting providers: Marycruz Cabrera Discharging Clinician: Ralph Loco Anticipated Discharge Date/Time: 12/09/20 08:45 Patient Disposition: Home, Self-Care Activity: may shower, no straining and pelvic rest Diet: regular Discharge Instructions: Pelvic rest for 4-6 weeks. May take over the counter Ibuprofen or Tylenol for pain. Call if saturating more than a pad an hour, leg redness, pain and swelling, temperature>100.4. No strenuous activity. Take one vitamin daily. Patient Instructions: Antibiotic Form Stand Alone Forms: General Discharge Information Follow-up/Referrals: Ralph Loco MD [Physician] - 1 Week (Call for appointment) Discharge Medications: Discontinued 147-iron gluc-folic 13 mg iron- 1 mg tablet 1 tablet PO DAILY RF: 0 hydrocortisone acetate [Anusol-HC] 25 mg suppository 25 mg RECTAL DAILY PRN (Reason: hemorrhoids) Qty: 12 RF: 0 ferrous sulfate 325 mg (65 mg iron) Tablet,Delayed Release (Dr/Ec) 325 mg PO BID RF: 0 Date of admission: 12/07/20 10:25 Primary Care Provider: Andria,Kenney A. Admitting Provider: Ralph Loco Attending physician on admission: Ralph Loco Condition: Stable
[2020-12-09] MEDS: DOCUSATE SODIUM 100 MG CAPSULE PO (10:26)
[2020-12-09] MEDS: MULTIVIT/MIN/PREN/FOL AC/IRON TABLET 1 TAB PO (10:26)
--- NOTE | 2020-12-09 10:40 | PC.NURSE ---
Consult with pt., mother reports infant is sleepy at times and will eagerly latch for other feedings. Assured mother this is normal is 37 weeks and may take several days for to wake on her own and be consistent with feedings. Advised to continue to wake to feed each feeding and stimulate while feeding to keep awake and effectively nursing. Mother had many questions on supplementation. Advised infant is WNL on all signs of adequate intake, and supplementation is her choice. Suggested if she chooses to supplement to breastfeed first then offer 15-20 mls of supplement and to supplement if she infant does not beastfeed by 4 hours from last feeding or has less than required output. Observed this feeding, mother is able to independently latch infant with appropriate positioning/alignment. She denies any nipple discomfort, is feeding as required and waking infant to feed if needed. is able to maintain latch, nursing with rhythmic draws and occasional swallowing noted. Mother stimulates to keep awake and nursing. at least 8 effective feedings in the past 24 hours, and is currently meeting outcomes for weight, output, jaundice and feeding frequencies. Mother states she feels confident to continue effective at home. Reviewed transition to breast milk, signs of adequate intake, and engorgement/relief. Mother has a breastpump for home use. Advised to pump if is not feeding every 3 hours. Instructed to call ICP if intake/output less than required. Reviewed regular medications mother is taking. Information provided per [facility]. Reviewed community resources on the [facility] website and in the Mom/Baby guide. Information on outpatient services provided. Mother has no further questions at this time.
[2020-12-11 11:06] VITALS: BP 127/85; PULSE 86; RESP 16; TEMP 36.4; O2SAT 100
== END 2020-12-09 12:10 | disposition home or self-care (01) | DRG 807 ==
LOC: ANHLDR 10:29 → ANHOB2 12-08 02:38
PROVIDERS: Admitting Provider Obstetrics & Gynecology; PCP Family Medicine; Visit Provider Obstetrics & Gynecology
DX: O13.4 Gestational [pregnancy-induced] hypertension without significant proteinuria, complicating childbirth (principal); Z37.0 Single live birth; Z3A.37 37 weeks gestation of pregnancy; O99.344 Other mental disorders complicating childbirth; F41.9 Anxiety disorder, unspecified; O36.8330 Maternal care for abnormalities of the fetal heart rate or rhythm, third trimester, not applicable or unspecified; O43.123 Velamentous insertion of umbilical cord, third trimester; O32.6XX0 Maternal care for compound presentation, not applicable or unspecified
CPT/HCPCS: 36415; 80053; 82570; 84156; 84550; 85014; 85018; 85025; 86592; 86850; 86900; 86901; 88307; A9270; J2405; J2590; J2795; J7120

== ENCOUNTER 2021-12-23 09:40 | Outpatient (CLI) | payer BC, SELFPAY ==
--- NOTE | ~2021-12-23 | US_ITS ---
EXAMINATION: US OB <=14 wk fetus w TV DATE: 12/23/2021 10:50 INDICATION: Bleeding during first trimester of . TECHNIQUE: Real-time pelvic ultrasound utilizing both a transvaginal and transabdominal probe was pe rformed. The interpreting radiologist was not present for the study. COMPARISON: None. FINDINGS: The uterus measures 9.4 x 5.0 x 6.1 cm. There is an intrauterine gestational sac. A yolk sac and fet al pole are identified. The crown rump length measures 5 mm, which correlates with an estimated gesta tional age of 6 weeks and 1 days. heart motion is identified measuring 115 beats per minute (bp m) by M-mode Doppler. 2.4 x 1.9 x 0.3 cm mixed anechoic and hypoechoic subchorionic hematoma along th e anterior inferior margin of the gestational sac. The right ovary measures 5.2 x 2.7 x 2.5 cm. Irregular thick-walled likely corpus luteum cyst with 1. 8 cm central anechoic region in the right ovary. The left ovary measures 3.0 x 1.6 x 1.5 cm. Vascular flow identified in both ovaries on color Doppler. There is no free fluid in the pelvis. IMPRESSION: 1. Single living fetus with heart rate of 115 bpm. 2. Gestational age by ultrasound of 6 weeks 1 day(s) +/- or day(s) with ultrasound estimated date of delivery ([facility]) of 08/17/2022. 2. 2.4 x 1.9 x 0.3 cm subchorionic hematoma. Reviewed, dictated and finalized at location A. IMPRESSION: 1. Single living fetus with heart rate of 115 bpm. 2. Gestational age by ultrasound of 6 weeks 1 day(s) +/- or day(s) with ultras ound estimated date of delivery ([facility]ENEZER) of 08/17/2022. 2. 2.4 x 1.9 x 0.3 cm subchorionic hematoma.
== END 2021-12-23 09:41 | disposition home or self-care (01) ==
PROVIDERS: PCP Family Medicine; Visit Provider Obstetrics & Gynecology
DX: O20.0 Threatened abortion (principal); Z3A.01 Less than 8 weeks gestation of pregnancy
CPT/HCPCS: 76801; 76817

== ENCOUNTER 2021-12-28 13:28 | Outpatient (CLI) | payer BC, SELFPAY ==
[2021-12-29] MEDS: RHO(D) IMMUNE GLOBULIN 300 MCG/2 ML SYRINGE IM (09:29)
== END 2021-12-28 13:29 | disposition home or self-care (01) ==
LOC: ANHLAB 13:30
PROVIDERS: PCP Family Medicine; Visit Provider Obstetrics & Gynecology
DX: O36.0990 Maternal care for other rhesus isoimmunization, unspecified trimester, not applicable or unspecified (principal); O20.9 Hemorrhage in early pregnancy, unspecified; Z3A.00 Weeks of gestation of pregnancy not specified
CPT/HCPCS: 36415; 85461; 90384; 96372; J2790

== ENCOUNTER 2022-05-12 10:25 | Outpatient (CLI) | payer BC, SELFPAY ==
[2022-05-12 11:47] LABS: Basophils Absolute Auto 0.1 K/mm3 (0.0-0.1); Basophils Percent Auto 0.6 % (0.2-1.2); Eosinophils Absolute Auto 0.3 K/mm3 (0-0.3); Eosinophils Percent Auto 2.2 % (0-4.4); Hematocrit 38.9 % (37.0-47.0); Immature Granulocyte Absolute 0.37 K/mm3 (0.00-0.031); Lymphocytes Absolute Auto 1.91 K/mm3 (0.9-3.2); Lymphocytes Percent Auto 15.3 % (18.3-44.2); Mean Corpuscular HGB Conc 33.4 g/dl (32-36); Mean Corpuscular Hemoglobin 32.6 pg (26-34); Mean Corpuscular Volume 97.5 fl (80-100); Mean Platelet Volume 10.8 fl (7.4-10.4); Monocytes Absolute Auto 1.3 K/mm3 (0.1-0.6); Neutrophils Absolute Auto 8.6 K/mm3 (1.3-6.7); Neutrophils Percent Auto 68.9 % (45.5-73.1); Platelet Count Result 157 k/mm3 (150-375); Red Blood Count 3.99 M/mm3 (4.2-5.4); Red Cell Distribution Width 13.5 % (11.5-14.5); White Blood Count 12.5 K/mm3 (4.5-10.0)
[2022-05-12 11:59] LABS: Glucose 1 Hour PP 50gm Dose 74 mg/dL
[2022-05-13] MEDS: RHO(D) IMMUNE GLOBULIN 300 MCG/2 ML SYRINGE IM (10:48)
== END 2022-05-12 10:26 | disposition home or self-care (01) ==
LOC: ANHLAB 10:26
PROVIDERS: PCP Family Medicine; Visit Provider Obstetrics & Gynecology
DX: Z36.9 Encounter for antenatal screening, unspecified (principal); Z3A.26 26 weeks gestation of pregnancy
CPT/HCPCS: 36415; 82947; 85025; 85461; 90384; 96372; J2790

== ENCOUNTER 2022-06-23 12:47 | Outpatient (CLI) | payer BC, SELFPAY ==
[2022-06-23 13:02] LABS: Basophils Absolute Auto 0.1 K/mm3 (0.0-0.1); Basophils Percent Auto 0.4 % (0.2-1.2); Eosinophils Absolute Auto 0.2 K/mm3 (0-0.3); Eosinophils Percent Auto 1.8 % (0-4.4); Hematocrit 40.7 % (37.0-47.0); Hemoglobin 13.8 g/dL (12.0-15.0); Immature Granulocyte Absolute 0.38 K/mm3 (0.00-0.031); Immature Granulocyte Percent A 2.8 % (0-0.5); Lymphocytes Absolute Auto 2.42 K/mm3 (0.9-3.2); Lymphocytes Percent Auto 17.8 % (18.3-44.2); Mean Corpuscular HGB Conc 33.9 g/dl (32-36); Mean Corpuscular Hemoglobin 32.8 pg (26-34); Mean Corpuscular Volume 96.7 fl (80-100); Mean Platelet Volume 10.5 fl (7.4-10.4); Monocytes Absolute Auto 1.3 K/mm3 (0.1-0.6); Monocytes Percent Auto 9.6 % (2.6-8.5); Neutrophils Absolute Auto 9.2 K/mm3 (1.3-6.7); Neutrophils Percent Auto 67.6 % (45.5-73.1); Platelet Count Result 163 k/mm3 (150-375); Red Blood Count 4.21 M/mm3 (4.2-5.4); Red Cell Distribution Width 13.3 % (11.5-14.5); White Blood Count 13.6 K/mm3 (4.5-10.0)
[2022-06-23 13:50] LABS: HIV 1/2 Ab P24 Ag Result Negative (Negative)
[2022-06-24 06:52] LABS: Rapid Plasma Reagin Non-Reactive (NonReactive)
== END 2022-06-23 12:48 | disposition home or self-care (01) ==
LOC: ANHLAB 12:48
PROVIDERS: PCP Family Medicine; Visit Provider Obstetrics & Gynecology
DX: Z34.90 Encounter for supervision of normal pregnancy, unspecified, unspecified trimester (principal)
CPT/HCPCS: 36415; 85025; 86592; 86703; G0432

== ENCOUNTER 2022-07-28 13:30 | Emergency (ER) | payer BC, SELFPAY ==
[2022-07-28 13:59] VITALS: BP 140/98; PULSE 90; RESP 16; TEMP 36.5; O2SAT 100
--- NOTE | 2022-07-28 15:01 | ED.SKABFB ---
HPI - Skin/Abscess/Foreign Bdy General Chief complaint: Skin/Abscess/Foreign Body Stated complaint: thrombosed hemorrhoids-sent by PCP Time Seen by Provider: 07/28/22 14:43 Source: patient Mode of arrival: ambulatory Limitations: no limitations History of Present Illness HPI narrative: 32 years old white female presents with painful hemorrhoids. Patient is 37 weeks . She denies any diarrhea or constipation. Related Data Home Medications Medication Instructions Recorded Confirmed cholecalciferol (vitamin D3) 25 25 mcg PO DAILY 12/17/20 07/26/22 mcg (1,000 unit) capsule docosahexaenoic acid 200 mg mg PO 12/17/20 07/26/22 capsule ( DHA) Allergies Allergy/AdvReac Type Severity Reaction Status Date / Time trimethoprim Allergy Intermediate Hives Verified 07/26/22 10:55 Sulfa (Sulfonamide Allergy Unknown shortness Verified 07/26/22 10:55 Antibiotics) of breath, sweating, nausea adhesive tape Allergy Blister Verified 07/26/22 10:55 Review of Systems Review of Systems: All systems reviewed & are unremarkable except as noted in HPI and below PMFSH Past Medical History Medical History Anxiety Gestational hypertension Vaginal delivery x1 Surgical History Surgical History History of hemorrhoidectomy History of tonsillectomy Family History Family History Father Diabetes mellitus Hypertension Cerebrovascular accident Congestive heart failure Mother Endometriosis Hyperglycemia Osteoporosis Hypotension Social History Social History Smoking status: Never smoker Second hand tobacco smoke exposure: No Alcohol intake: former Substance use: never Spiritual care concerns: No Exam Narrative: General appearance: Well-developed, well-nourished Skin: Normal color Chest and respiratory: Airway patent, no respiratory distress, no accessory muscle use Heart: Regular rate/rhythm Abdomen: Soft, nontender, no organomegaly, quiet bowel sounds, anal exam showed hemorrhoids, external, no active bleeding, one of them it thrombosed 1.5 cm x 1 cm bluish discoloration Vascular: Normal peripheral pulses, normal capillary refill. Neurologic: Alert and oriented ?3, Course Course Emergency Course: Improving Vital Signs Vital signs: Vital Signs Temperature 36.5 C 07/28/22 13:59 Pulse Rate 90 07/28/22 13:59 Respiratory Rate 16 07/28/22 13:59 Blood Pressure 140/98 H 07/28/22 13:59 Pulse Oximetry 100 07/28/22 13:59 Temperature 36.5 C 07/28/22 13:59 Pulse Rate 90 07/28/22 13:59 Respiratory Rate 16 07/28/22 13:59 Blood Pressure 140/98 H 07/28/22 13:59 Pulse Oximetry 100 07/28/22 13:59 Procedures Other Procedure Procedure 1: Other Procedure: Thrombosed hemorrhoids, local lidocaine 1%, Betadine, scalpel #11, 1 cm blood clot and another half centimeter blood clot came out, immediate relief. Slight bleeding, stopped within 2 minutes with local pressure, patient feeling much better, no complication. Discharge Plan Discharge Clinical Impression: External hemorrhoid, thrombosed Patient Disposition: Home, Self-Care Condition: Improved Instructions: Antibiotic Form, Thrombosed Hemorrhoid (ED) Additional Instructions: Return if symptoms are worsening , call dr ferrell for appointment, take Tylenol as as needed for aches and pain, continue home medications. Prescriptions: New hydrocortisone acetate [Anusol-HC] 25 mg suppository
[2022-07-28] MEDS: LIDOCAINE HCL 1% PF 30 ML VIAL (16:17)
== END 2022-07-28 16:31 | disposition home or self-care (01) ==
PROVIDERS: Emergency Provider Emergency Medicine; PCP Family Medicine
DX: O22.43 Hemorrhoids in pregnancy, third trimester (principal); Z3A.37 37 weeks gestation of pregnancy
CPT/HCPCS: 46083; 99283

== ENCOUNTER 2022-08-05 13:08 | Observation (INO) | payer BC, SELFPAY ==
--- NOTE | 2022-08-27 20:16 | PM.OBTRLD ---
OB - Triage/Final Diagnosis Visit Information Comments/Additional reasons for admission: I have assessed the risk for this patient, Latha Norris, and determined that she would benefit from observation care. Final Diagnosis (1) False labor: Code(s): O47.9 - False labor, unspecified Status: Acute
== END 2022-08-05 14:48 | disposition home or self-care (01) ==
PROVIDERS: Admitting Provider Obstetrics & Gynecology; PCP Family Medicine; Visit Provider Obstetrics & Gynecology
DX: O47.1 False labor at or after 37 completed weeks of gestation (principal); Z3A.38 38 weeks gestation of pregnancy
CPT/HCPCS: 84112; G0378; G0379

== ENCOUNTER 2022-08-07 16:49 | Inpatient (IN) | payer BC, SELFPAY ==
[2022-08-07] VITALS (109 sets, daily range): BP systolic 72–150; BP diastolic 43–104; PULSE 34–193; TEMP 36.6–36.8; O2SAT 86–100; BMI 26.8
--- NOTE | 2022-08-07 17:01 | PM.IMHP ---
H&P: HPI History of Present Illness Date/Time: 08/07/22 17:01 Chief Complaint: INDUCTION OF LABOR Narrative: PATIENT IS A AT 39 WEEKS BY LMP 11/06/2021 WITH AN EDC 08/13/22 CONSISTENT WITH A 6 WEEK ULTRASOUND PRESENTS FOR MEDICAL INDUCTION OF LABOR WITH A FAVORABLE CERVIX. PNC UNCOMPLICATED. SHE DID TAKE BABY ASPIRIN UNTIL 37 WEEKS DUE TO HISTORY OF GESTATIONAL HYPERTENSION WITH HER LAST . SHE HAS ALSO HAD TREATMENT OF THROMBOSED HEMORRHOID RECENTLY DURING THIS . LABS REVIEWED. GBS NEG. SHE HAS BEEN INFORMED OF RISK BENEFIT OF INDUCTION VERSUS SPONTANEOUS LABOR AND SHE OPTS FOR INDUCTION OF LABOR. Review of Systems Review of Systems: All systems reviewed & are unremarkable except as noted in HPI and below Constitutional: Constitutional: Reports no additional constitutional complaints and Denies headache(s) Eyes: Eyes: Denies spots in vision ENT: Reports system reviewed and no additional complaints, except as documented and Denies headache(s) Cardiovascular: Cardiovascular: Denies chest pain and Denies dyspnea Respiratory: Respiratory: Denies dyspnea Gastrointestinal: Gastrointestinal: Reports no additional gastrointestinal complaints Genitourinary: Genitourinary: Reports amenorrhea Musculoskeletal: Musculoskeletal: Reports no additional musculoskeletal complaints Integumentary/Breasts: Skin/Breast: Denies breast mass and Denies rash Neurologic: Denies headache(s) Psychiatric: Psychiatric: Reports no additional psychiatric complaints PMFSH Past Medical History Medical History Anxiety Gestational hypertension Vaginal delivery x1 Surgical History Surgical History History of hemorrhoidectomy History of tonsillectomy Family History Family History Father Diabetes mellitus Hypertension Cerebrovascular accident Congestive heart failure Mother Endometriosis Hyperglycemia Osteoporosis Hypotension Social History Social History Smoking status: Never smoker Second hand tobacco smoke exposure: No Alcohol intake: former Substance use: never Spiritual care concerns: No Meds Home Medications and Allergies Home Medications Medication Instructions Recorded Confirmed Type cholecalciferol (vitamin D3) 25 25 mcg PO DAILY 12/17/20 07/26/22 History mcg (1,000 unit) capsule docosahexaenoic acid 200 mg mg PO 12/17/20 07/26/22 History capsule ( DHA) docusate sodium 100 mg capsule 100 mg PO BID #20 caps 07/28/22 Rx ([facility]) hydrocortisone acetate 25 mg 25 mg RECTAL BID #20 ea 07/28/22 Rx rectal suppository (Anusol-HC) Allergies Allergy/AdvReac Type Severity Reaction Status Date / Time trimethoprim Allergy Intermediate Hives Verified 08/03/22 09:43 Sulfa (Sulfonamide Allergy Unknown shortness Verified 08/03/22 09:43 Antibiotics) of breath, sweating, nausea adhesive tape Allergy Blister Verified 08/03/22 09:43 Exam Const: General: no acute distress Eyes: General: appearance normal, both eyes and all related structures Neck: Neck: normal visual inspection Resp: Effort & Inspection: normal respiratory effort Auscultation: clear to auscultation bilaterally Cardio: Rate: regular rate Rhythm: regular rhythm GI: Inspection: normal to inspection and other (GRAVID) Other: Gravid no fundal tenderness no right upper quadrant pain : External Female Exam: normal external appearance Other: CX 3.5/70/-2 Skin: General skin exam: no rashes or lesions noted Neuro: Cognition (Neuro): normal cognition Extrem: General: normal to inspection Psych: Mental Status: mental status grossly normal Assessment and Plan Assessment and plan (1) Elective induction of labor planned: Status: Acu
[2022-08-07 18:04] LABS: Basophils Percent Auto 0.3 % (0.2-1.2); Eosinophils Absolute Auto 0.1 K/mm3 (0-0.3); Eosinophils Percent Auto 0.8 % (0-4.4); Hematocrit 40.9 % (37.0-47.0); Hemoglobin 13.7 g/dL (12.0-15.0); Immature Granulocyte Absolute 0.18 K/mm3 (0.00-0.031); Immature Granulocyte Percent A 1.4 % (0-0.5); Lymphocytes Absolute Auto 3.16 K/mm3 (0.9-3.2); Lymphocytes Percent Auto 23.7 % (18.3-44.2); Mean Corpuscular HGB Conc 33.5 g/dl (32-36); Mean Corpuscular Hemoglobin 31.8 pg (26-34); Mean Corpuscular Volume 94.9 fl (80-100); Mean Platelet Volume 11.7 fl (7.4-10.4); Monocytes Absolute Auto 1.3 K/mm3 (0.1-0.6); Monocytes Percent Auto 9.5 % (2.6-8.5); Neutrophils Absolute Auto 8.6 K/mm3 (1.3-6.7); Neutrophils Percent Auto 64.3 % (45.5-73.1); Platelet Count Result 187 k/mm3 (150-375); Red Blood Count 4.31 M/mm3 (4.2-5.4); Red Cell Distribution Width 13.3 % (11.5-14.5); White Blood Count 13.3 K/mm3 (4.5-10.0)
--- NOTE | 2022-08-07 18:11 | LDADM ---
This patient, Latha Norris, was admitted to Labor/Delivery/Recovery [facility] on 08/07/22 at 16:49. Plans for labor, pain management and were discussed with patient. Patient/family oriented to hospital policies and general routines including ID bracelet, bed and alarms, visiting hours, pain management, procedures, bathroom and other care routines, personal items, smoking policy, room service/diet and guest tray routines, security routines, and visiting hours. Patient/Family are encouraged to report perceived risks to care and to ask questions if they do not understand what they are told or what they should do. See OBIX for further documentation.
[2022-08-07] MEDS: LACTATED RINGERS 1,000 ML 999 ML IV CONT (18:26)
--- NOTE | 2022-08-07 19:29 | WPDANESEPPF ---
Anes - Initial Pre Proc Eval Date/Time: 08/07/22 190 Surgeon: Ralph Loco MD Pre Op Diagnosis: Labor pain Pre Op Diagnosis: IOL Patient Data Age: 32 Gender: F Height: 1.65 m Weight: 73.18 kg Last Vital Signs Temp 36.8 C 08/07/22 19:01 Pulse 92 08/07/22 19:28 BP 129/60 08/07/22 19:28 Pulse Ox 100 08/07/22 19:25 O2 Del Method Room Air 08/07/22 18:11 Allergies Allergy/AdvReac Type Severity Reaction Status Date / Time trimethoprim Allergy Intermediate Hives Verified 08/03/22 09:43 Sulfa (Sulfonamide Allergy Unknown shortness Verified 08/03/22 09:43 Antibiotics) of breath, sweating, nausea adhesive tape Allergy Blister Verified 08/03/22 09:43 Home Medications Medication Instructions Recorded Confirmed Type cholecalciferol (vitamin D3) 25 25 mcg PO DAILY 12/17/20 07/26/22 History mcg (1,000 unit) capsule docosahexaenoic acid 200 mg mg PO 12/17/20 07/26/22 History capsule ( DHA) docusate sodium 100 mg capsule 100 mg PO BID #20 caps 07/28/22 Rx ([facility]) hydrocortisone acetate 25 mg 25 mg RECTAL BID #20 ea 07/28/22 Rx rectal suppository (Anusol-HC) Laboratory Tests 08/07/22 08/07/22 08/07/22 17:38 17:38 17:38 WBC 13.3 K/mm3 H K/mm3 (4.5-10.0) RBC 4.31 M/mm3 M/mm3 (4.2-5.4) Hgb 13.7 g/dL g/dL (12.0-15.0) Hct 40.9 % % (37.0-47.0) MCV 94.9 fl fl (80-100) MCH 31.8 pg pg (26-34) MCHC 33.5 g/dl g/dl (32-36) RDW 13.3 % % (11.5-14.5) Plt Count 187 k/mm3 k/mm3 (150-375) MPV 11.7 fl H fl (7.4-10.4) Immature Gran % (Auto) 1.4 % H % (0-0.5) Neut % (Auto) 64.3 % % (45.5-73.1) Lymph % (Auto) 23.7 % % (18.3-44.2) Sandoval % (Auto) 9.5 % H % (2.6-8.5) Eos % (Auto) 0.8 % % (0-4.4) Baso % (Auto) 0.3 % % (0.2-1.2) Lymph # (Auto) 3.16 K/mm3 K/mm3 (0.9-3.2) Sandoval # (Auto) 1.3 K/mm3 H K/mm3 (0.1-0.6) Eos # (Auto) 0.1 K/mm3 K/mm3 (0-0.3) Baso # (Auto) 0.0 K/mm3 K/mm3 (0.0-0.1) Abs Immat Gran (auto) 0.18 K/mm3 H K/mm3 (0.00-0.031) Absolute Neuts (auto) 8.6 K/mm3 H K/mm3 (1.3-6.7) Absolute Nucleated RBC 0.0 K/mm3 K/mm3 (0.0-0.012) Nucleated RBC % 0.0 % % (0.0-0.2) RPR Pending Blood Type O Negative Antibody Screen Negative Patient hx anesthesia problems: none Family hx anesthesia problems: none Results Review: All pre-operative results and documents have been reviewed as part of the pre-operative evaluation. REPLACED BY [facility] Past Medical History Medical History Anxiety Gestational hypertension Vaginal delivery x1 Surgical History Surgical History History of hemorrhoidectomy History of tonsillectomy Family History Family History Father Diabetes mellitus Hypertension Cerebrovascular accident Congestive heart failure Mother Endometriosis Hyperglycemia Osteoporosis Hypotension Social History Social History Smoking status: Never smoker Second hand tobacco smoke exposure: No Alcohol intake: former Substance use: never Lack of Transportation: No Lack of Food: Never True Current Housing: I Have Housing Concerned About Future Housing: No Difficulty Paying Gas/Electric Bills: No Difficulty Paying for Meds: No Currently Unemployed: No Education: Master's Degree or Higher Difficulty w/ Childcare or Family Care: No Spiritual care concerns: No Anes - Eval Final PreProcedure Day of Procedure 08/07/22 19:29 Patient weight: normal Heart: regular rate and rhythm Lungs: clear to au
--- NOTE | 2022-08-07 19:29 | PM.OBPNLAB ---
Pain Control Date/time seen: 08/07/22 19:29 fht 125-130 cat 1 AROM clear 3.5/80/-2. ctx mild irreg. Will start Pitocin if no progress into labor in two hours.
--- NOTE | 2022-08-07 19:30 | WPDANESEPN ---
Anes - Epidural Procedure Note Date/Time: 08/07/22 19:02 Consent: I have discussed with the patient/family/POA, the placement of an epidural catheter and the use of epidural narcotic/local anesthetic for labor analgesia and/or postoperative pain management, including associated potential risks, benefits, complications and side effects. I have discussed alternative methods of labor analgesia and/or postoperative pain management. The patient/family/POA, understand(s) and wish(es) to proceed with epidural narcotic/local anesthetic for labor analgesia and/or postoperative pain management. Time-Out: A pre-procedural Time-Out was completed immediately before starting the procedure and confirmed: Patient Identification, Site, Procedure, Patient Position and the Availability of Requisite Equipment. Epidural Insertion Note Patient position: sitting Skin prep: chlorhexidine and sterile drape Needle: 18g Tuohy-Schliff Catheter: 20g Unstyleted Technique: Loss of resistance. Level of insertion: L3/4 Length in epidural space (cm): 3 Test dose: 1.5% Lidocaine with 1:[id number] Epi, negative for subarachnoid Inj and negative for intravascular Inj Time of test dose: 19:09 Observations: tolerated well Complications: none
[2022-08-07] MEDS: LACTATED RINGERS 1,000 ML 125 ML IV CONT (19:35)
[2022-08-07] MEDS: OXYTOCIN 30 UNITS/NS 500 ML 30 UNITS/500 ML BAG IV CONT (21:30)
[2022-08-07] MEDS: ONDANSETRON INJ 4 MG/2 ML VIAL IV PUSH (21:51)
[2022-08-08] VITALS (33 sets, daily range): BP systolic 101–126; BP diastolic 54–80; PULSE 82–130; RESP 16–18; TEMP 36.7–37.2; O2SAT 96–100
--- NOTE | 2022-08-08 01:32 | PM.OBPRVD ---
OB - Delivery Note Procedure Delivery date: 08/08/22 Procedure: Spontaneous vaginal delivery Induction method: AROM Delivery augmentation: Pitocin Delivery monitor: External FHT Route of delivery: Laceration Description: Perineal - 1st Degree Delivery repair: vicryl (3.0 vicryl) Specimen: No Quantitative Blood Loss (ml): 250 Anesthesia type: Epidural Narrative: Patient admitted for [facility]. She had epidural placed in anticipation of quick active labor and she wanted benefit of epidural. She was then AROM clear fluid. Cervix with minimal change and irregular periods after two hours after rupture of membranes and pitocin was started for augmentation. She progressed into active labor and complete. She pushed for less than ten minutes and delivered a male infant. Infant's nose mouth suctioned at perineum. Loose nuchal cord manually reduced x 2. The shoulder and the rest of infant was delivered. Loose banderlero cord was reduced. was vigorously crying and placed on maternal abdomen. Delayed cord clamping for 45 seconds until cord apulsatile. Cord was then doubly clamped and cut. IV Pitocin started. Placenta delivered spontaneously and intact, trailing membranes retrieved with ring forceps. Placenta inspected. First degree perineal laceration near introitus repaired with interrupted sutures of 3.0 vicryl. Lower uterine segment cleared of some clots due to a moderate ooze. Uterus firm. Bleeding minimal. Patient tolerated procedure well. Baby Date of : 08/08/22 Time of : 01:19 Weeks of gestation at delivery: 39 Infant gender: Male Weight (pounds): 7 Weight (ounces): 8 presentation: vertex position: Right Occiput Anterior Placenta delivery description: Spontaneous Cord Vessel Description: Nuchal Cord (x2), Loose, Reduced (manually), Around Body (x1) and Other (long cord ) score one minute: 8 score five minutes: 9
[2022-08-08] MEDS: MULTIVIT/MIN/PREN/FOL AC/IRON TABLET 1 TAB PO (08:08)
[2022-08-08] MEDS: IBUPROFEN 600 MG TABLET PO (08:09)
[2022-08-08 09:17] LABS: Rapid Plasma Reagin Non-Reactive (NonReactive)
--- NOTE | 2022-08-08 10:27 | PC.NURSE ---
[id number] Introductions were made, then consulted with patient to assess needs related to . Mother led the conversation with her?plans to feed?her infant and the?experience so far. Resources provided for inpatient. Mother voiced understanding of information and will call if there is a request for assistance. Mother is receptive to practicing techniques for waking to since it has been 3 hours since the start of the last feeding. Mother works well with her with encouragement. Encouraged understanding of the benefits of skin to skin (unwrapping infant and placing vertically on her chest), massage touch, changing infants positioning, responsive feeding and how to watch for early feeding signs, frequency of feeding on demand about every 8-12 times in 24 hours (every 2-3 hours), milk production, duration of feeding, signs of adequate intake/output and how to record on the feeding sheet. Reviewed positioning and ear, shoulder, hip alignment, supporting the breast, asymmetrical latch (off-center), and leading with the chin with a big open side gape. latched optimally to the left breast in football position. Education given to mother of how to visualize suck/swallow ratios and to listen for drinking at the breast. Infant was able to maintain latch without discomfort to mother. Nipple care reviewed with optimal latch and good positioning. Reviewed good handwashing when or touching the breast/nipples to prevent infection. Resources used to facilitate learning were used with the visual handouts and tool. Mother voiced understanding of responsive feedings, stimulating with skin to skin, hand expressed colostrum, massage touch, talking to to encourage if it has been 2 -3 hours since the start of the last , to call if does not latch or there is discomfort with . Reported to the primary RN.
[2022-08-09 05:20] LABS: Hematocrit 38.8 % (37.0-47.0); Hemoglobin 12.9 g/dL (12.0-15.0)
[2022-08-09 07:50] VITALS: BP 108/79; PULSE 80; RESP 16; TEMP 37; O2SAT 100
--- NOTE | 2022-08-09 08:18 | P.PNOB_ITS ---
OB - PN: Subj Subjective Date/time seen: 08/09/22 08:18 Patient comments: pain well controlled, tolerating diet and other (Decreasing lochia.) baby status: doing well and nursing well [place] feeding status: exclusively breast feeding OB - PN: Obj Data Labs 08/09/22 02:42 Labs: Laboratory Results - last 24 hr 08/07/22 08/09/22 08/09/22 17:38 02:42 02:42 Hgb 12.9 Hct 38.8 RPR Non-reactive Blood Type O Negative Antibody Screen Negative Screen Negative Baby's Blood Type B pos Baby's PURA Negative Doses of RhIg Required 1 OB - PN A/P Plan day: 1 Plan: routine care Comments: Patient doing well. She desires to go home. Discharge precautions discussed. Time Spent With Patient Time: Total time spent is greater than 50% in coordination of care (as documented) at patient's floor/unit and/or counseling patient: Exam Psych: Affect: normal affect Other: Abd: fundus firm below umbilicus, nontender Perineum: healing Ext: nontender
--- NOTE | 2022-08-09 08:22 | PM.OBDSVD ---
DS: Admitting Diagnosis Discharge Date 08/09/2022 Admitting Diagnosis medical induction of labor DS: Discharge Diagnosis Discharge Diagnosis Plan intrauterine delivered OB - DS: Summary Hospital Course Hospital Course: patient admitted on [id number] for medical induction of labor. Her cervix was favorable at that time. she had assisted rupture of membranes. Labor was augmented with Pitocin. She had an uncomplicated vaginal delivery. she did well. Had adequate pain control was ambulating well baby was nursing well. She wanted discharge on day 1. Discharge precautions discussed. OB Procedures : Ultrasound OB Procedures Intrapartum: Spontaneous Vag Delivery OB Procedures: : None Peripartum Data Infant Delivery Method: Natural Vaginal Laceration Description: Perineal - 1st Degree complications: none Status at Discharge Functional status at discharge: independent ambulation Time Spent with Patient Time attestation: Total time spent providing and/or coordinating discharge services: Exam Const: General: cooperative Orientation/consciousness: oriented to person, oriented to place and oriented to time HENMT: Face/Nose/Sinus: Normal external nose present Eyes: General: appearance normal, both eyes and all related structures Resp: Effort & Inspection: normal respiratory effort GI: Inspection: normal to inspection Other: Fundus firm nontender below umbilicus : Other: Normal external genitalia. Perineum healing. Skin: General skin exam: normal color Neuro: General: oriented to person, oriented to place and oriented to time Extrem: General: normal to inspection and no calf tenderness Other: nontender no swelling Psych: Appearance: grossly normal Mental Status: mental status grossly normal DS: Data Data Completed and Pending Labs on day of discharge: Labs from last 24 hours 08/09/22 08/09/22 08/07/22 02:42 02:42 17:38 Hgb 12.9 Hct 38.8 RPR Non-reactive Blood Type O Negative Antibody Screen Negative Screen Negative Baby's Blood Type B pos Baby's PURA Negative Doses of RhIg Required 1 Discharge Plan Discharge Attending physician on discharge: Ralph Loco Consulting providers: Yogesh Mcginnis Discharging Clinician: Ralph Loco Anticipated Discharge Date/Time: 08/09/22 08:21 Patient Disposition: Home, Self-Care Activity: may shower and pelvic rest Diet: regular Discharge Instructions: Pelvic rest for 4-6 weeks. May take over the counter Ibuprofen or Tylenol for pain. Call if saturating more than a pad an hour, leg redness, pain and swelling, temperature>100.4. No strenuous activity. Patient Instructions: Antibiotic Form Stand Alone Forms: General Discharge Information Follow-up/Referrals: Ralph Loco MD [Physician] - 6 Weeks ( Call for appointment) Discharge Medications: No Action DHA 200 mg capsule PO cholecalciferol (vitamin D3) 25 mcg (1,000 unit) capsule 25 mcg PO DAILY hydrocortisone acetate [Anusol-HC] 25 mg suppository 25 mg RECTAL BID Qty: 20 0RF docusate sodium [Col-Rite] 100 mg capsule 100 mg PO BID Qty: 20 0RF Date of admission: 08/07/22 16:49 Primary Care Provider: Andria,Kenney Erazo Admitting Provider: Ralph Loco Attending physician on admission: Ralph Loco Condition: Stable
[2022-08-09] MEDS: IBUPROFEN 600 MG TABLET PO (08:37)
[2022-08-09] MEDS: MULTIVIT/MIN/PREN/FOL AC/IRON TABLET 1 TAB PO (08:37)
--- NOTE | 2022-08-09 09:39 | PC.NURSE ---
Patient viewed the discharge video Mother & Baby Care, The First Two Weeks . Patient was given the opportunity and encouraged to ask questions. Patient verbalized understanding of information shared and has been given the mother/baby guide for home reference.
[2022-08-09] MEDS: RHO(D) IMMUNE GLOBULIN 300 MCG/2 ML SYRINGE IM (10:14)
--- NOTE | 2022-08-09 10:34 | WPDANLDPN2 ---
Anes-Prog Note L&D Date/Time: 08/09/22 10:34 Comfortable throughout: labor and delivery Neuraxial method: epidural Epidural/Spinal procedure site: clean & non-tender Neuro status: Neuro function grossly intact. Cardiovascular status: normal Respiratory status: normal Airway patency: baseline Mental status: baseline Post-Op hydration status: normal Vital Signs: Last Vital Signs Temp 98.6 F 08/09/22 07:50 Pulse 80 08/09/22 07:50 Resp 16 08/09/22 07:50 BP 108/79 08/09/22 07:50 Pulse Ox 100 08/09/22 07:50 O2 Del Method Room Air 08/07/22 18:11 Pain score (VAS): 0/10 I/O: Intake & Output 08/08/22 08/09/22 08/09/22 23:59 07:59 15:59 Intake Total 500 Balance 500 Post-procedural complaints: none Patient feedback: Patient satisfied with anesthetic care.
--- NOTE | 2022-08-09 14:33 | PC.NURSE ---
[id number] Mother led the conversation with her experience and plan to feed her so far and her ability to independently latch optimally without discomfort. Mother is feeding appropriately for growth of and understands stimulating infant to eat if needed. has had appropriate feedings in the last 24 hours meets the outcomes for weight, output and jaundice at this time. Discussed questions and concerns were addressed. had just finished a , mother had not called for assistance, mother states there was no pain with no misshaped nipple. Infant is sleepy and not interested in practicing at this time to assess a feeding. Mother states she is confident to continue effectively her at home or when to call for assistance, denies any additional assistance or education at this time. Reinforced understanding of milk production, transition of milk, signs of adequate intake, prevention/relief of engorgement, responsive after visualizing feeding cues, the different methods of stimulating to breastfeed 2-3 hours after the start of the last feeding, community resources, medication information reviewed per [facility] and when to call a provider using the resource of the mom and baby guide. Mother voiced understanding of the education shared.
[2022-08-10 07:53] VITALS: BP 120/75; PULSE 88; RESP 20; TEMP 36.7; O2SAT 98
== END 2022-08-09 12:15 | disposition home or self-care (01) | DRG 807 ==
LOC: ANHLDR 16:56 → ANHOB2 08-08 03:59
PROVIDERS: Admitting Provider Obstetrics & Gynecology; PCP Family Medicine; Visit Provider Obstetrics & Gynecology
DX: O69.81X0 Labor and delivery complicated by cord around neck, without compression, not applicable or unspecified (principal); Z37.0 Single live birth; O70.0 First degree perineal laceration during delivery; Z3A.39 39 weeks gestation of pregnancy
CPT/HCPCS: 36415; 84112; 85014; 85018; 85025; 85461; 86592; 86850; 86900; 86901; 90384; A9270; G0378; G0379; J2405; J2590; J2790; J2795; J7120

== ENCOUNTER → 2022-09-29 09:51 | Outpatient (CLI) | payer BC, SELFPAY ==
--- NOTE | ~2022-09-29 | US_ITS ---
Thyroid ultrasound. Clinical History: Nontoxic goiter Findings: Real-time sonography of the thyroid gland was performed. The right lobe measures 4.7 x 1.2 x 1.5 cm. The left lobe measures 4.5 x 1.0 x 1.3 cm. The isthmus is 2 mm in AP diameter. Thyroid parenchyma is homogeneous. No thyroid nodule seen. Impression: Unremarkable exam. Reviewed, dictated and finalized at location . AGENT Impression: Unremarkable exam.
== END ==
PROVIDERS: PCP Family Medicine; Visit Provider Registered Nurse
DX: E04.9 Nontoxic goiter, unspecified (principal)
CPT/HCPCS: 76536

== ENCOUNTER 2023-08-10 10:26 | Outpatient (RCR) | payer BC, SELFPAY ==
[2023-08-10] MEDS: RHO(D) IMMUNE GLOBULIN 300 MCG/2 ML SYRINGE IM (18:26)
== END 2023-11-08 23:59 | disposition home or self-care (01) ==
LOC: ANHLAB 10:26
PROVIDERS: PCP Family Medicine; Visit Provider Obstetrics & Gynecology
DX: Z29.13 Encounter for prophylactic Rho(D) immune globulin (principal); O36.0190 Maternal care for anti-D [Rh] antibodies, unspecified trimester, not applicable or unspecified; Z67.91 Unspecified blood type, Rh negative; Z3A.00 Weeks of gestation of pregnancy not specified
CPT/HCPCS: 36415; 85461; 86850; 86900; 86901; 90384; 96372; J2790

== ENCOUNTER 2023-11-25 14:50 | Emergency (ER) | payer BC, SELFPAY ==
--- NOTE | ~2023-11-25 | US_ITS ---
EXAMINATION: US OB <=14 wk fetus w TV INDICATION: r/o ectopic TECHNIQUE: Sonography of the pelvis was performed by transabdominal and transvaginal techniques. COMPARISON: None. RESULT: Uterus: 9.8 x 4.8 x 5.1 cm. Anteverted. Homogenous myometrium. Intrauterine gestational sac: Single present. Low-lying gestational sac with slightly irregular shap e. Yolk sac: Present. Embryo: Single present. Olar rump length: 0.4 cm, corresponding gestational age 6 weeks, 1 days. G estational heart rate: Absent. Subgestational hematoma: Absent . Right ovary: 3.1 x 2.5 x 2.7 cm. Vascular flow is present. Corpus luteal cyst. Left ovary: 3.1 x 1.8 x 2.1 cm. Vascular flow is present. Simple cyst or dominant follicle. Pelvis free fluid: None. IMPRESSION: Single intrauterine gestational sac. Slightly irregular sac shape. Low positioned of the gestational sac within the uterus. No heartbeat detected. Estimated Gestational Age: 6 weeks, 1 days by crown rump length. EBENEZER by ultrasound 07/19/2024. No sonographic evidence of ectopic . Overall, findings are consistent with an intrauterine of uncertain viability. Recommend ria se clinical, sonographic and laboratory follow-up. Reviewed, dictated and finalized at location K. IMPRESSION: Single intrauterine gestational sac. Slightly irregular sac shape. Low position ed of the gestational sac within the uterus. No heartbeat detected. Estimated Gestational Age: 6 weeks, 1 days by crown rump length. EBENEZER by ultras ound 07/19/2024. No sonographic evidence of ectopic . Overall, findings are consistent with an intrauterine of uncertain vi ability. Recommend close clinical, sonographic and laboratory follow-up.
[2023-11-25 15:13] VITALS: BP 119/74; PULSE 78; RESP 18; O2SAT 100
[2023-11-25 15:14] LABS: Basophils Percent Auto 0.4 % (0.2-1.2); Eosinophils Absolute Auto 0.1 K/mm3 (0-0.3); Eosinophils Percent Auto 1.6 % (0-4.4); Hematocrit 40.3 % (37.0-47.0); Hemoglobin 13.6 g/dL (12.0-15.0); Immature Granulocyte Absolute 0.03 K/mm3 (0.00-0.031); Immature Granulocyte Percent A 0.4 % (0-0.5); Lymphocytes Absolute Auto 1.84 K/mm3 (0.9-3.2); Lymphocytes Percent Auto 21.6 % (18.3-44.2); Mean Corpuscular HGB Conc 33.7 g/dl (32-36); Mean Corpuscular Hemoglobin 29.6 pg (26-34); Mean Corpuscular Volume 87.6 fl (80-100); Mean Platelet Volume 10.6 fl (7.4-10.4); Monocytes Absolute Auto 0.7 K/mm3 (0.1-0.6); Monocytes Percent Auto 8.1 % (2.6-8.5); Neutrophils Absolute Auto 5.8 K/mm3 (1.3-6.7); Neutrophils Percent Auto 67.9 % (45.5-73.1); Platelet Count Result 184 k/mm3 (150-375); Red Cell Distribution Width 12.5 % (11.5-14.5); White Blood Count 8.5 K/mm3 (4.5-10.0)
[2023-11-25 15:25] LABS: Alanine Aminotransferase 15 U/L (6-35); Albumin Level 4.4 g/dL (3.5-5.1); Alkaline Phosphatase 64 U/L (38-126); Anion Gap 4 mmol/L (4-12); Appearance Urine Cloudy (Clear); Aspartate Amino Transferase 21 U/L (14-36); Bacteria Urine None Seen /hpf; Bilirubin Urine Negative (Negative); Bilirubin,Total 0.4 mg/dL (0.2-1.3); Blood Urea Nitrogen 14 mg/dL (7-17); Blood Urine 3+ (Negative); Calcium 8.6 mg/dL (8.4-10.2); Carbon Dioxide 29 mmol/L (22-30); Chloride 102 mmol/L (98-107); Color Urine Yellow (Yellow); Estimated CRCL calculation 97 ml/min; Estimated Glomerular Filt Rate > 60; Glucose 96 mg/dL (65-110); Glucose Urine UA Negative (Negative); INR 0.9; Ketones Urine Negative (Negative); Leukocyte Esterase Ur Negative LEU/UL (Negative); Nitrate Urine Negative (Negative); Non Pathogenic Casts 0-2; Potassium 3.5 mmol/L (3.4-5.0); Protein Urine Trace mg/dL (Negative); RBC Urine >100 /hpf (0-2); Sodium 135 mmol/L (137-145); Specific Grav Ur 1.026 (1.001-1.035); Squamous Epithelial Cell Urine None Seen /hpf (Few); WBC Urine 0-5 /hpf (0-3)
[2023-11-25 15:26] LABS: Add Urine Microscopic? YES; Partial Thromboplastin Time 29.1 Seconds (22.3-36.8)
--- NOTE | 2023-11-25 16:19 | ED.GENADULT ---
HPI - General Adult General Chief complaint: Vaginal Bleeding Stated complaint: miscarriage Time Seen by Provider: 11/25/23 14:53 History of Present Illness HPI narrative: Patient is a 33-year-old female who presents the ER with reports of vaginal bleeding. Ongoing for 3 days. Originally spotting but significantly increased today. It is bright and dark in appearance. She has gone through 4 pads in the last hour. No loss of consciousness. She reports she to receive urine. She had her L1 P 10/08/23. Her OB is Dr. Loco. She is O negative blood type. No vaginal discharge. Mild pelvic cramping. Related Data Home Medications Medication Instructions Recorded Confirmed docosahexaenoic acid 200 mg mg PO 12/17/20 07/26/22 capsule ( DHA) Allergies Allergy/AdvReac Type Severity Reaction Status Date / Time trimethoprim Allergy Intermediate Hives Verified 05/01/23 11:35 Sulfa (Sulfonamide Allergy Unknown shortness Verified 05/01/23 11:35 Antibiotics) of breath, sweating, nausea adhesive tape Allergy Blister Verified 05/01/23 11:35 Review of Systems Review of Systems: All systems reviewed & are unremarkable except as noted in HPI and below Constitutional: Constitutional: Reports no additional constitutional complaints Cardiovascular: Cardiovascular: Reports no additional cardiovascular complaints Respiratory: Respiratory: Reports no additional respiratory complaints Gastrointestinal: Gastrointestinal: Reports no additional gastrointestinal complaints Genitourinary: Genitourinary: Reports abnormal vaginal bleeding, Reports pelvic pain and Denies vaginal discharge PMFSH Past Medical History Medical History Anxiety Gestational hypertension Vaginal delivery x1 Surgical History Surgical History History of hemorrhoidectomy History of tonsillectomy Family History Family History Father Diabetes mellitus Hypertension Cerebrovascular accident Congestive heart failure Mother Endometriosis Hyperglycemia Osteoporosis Hypotension Social History Social History (Updated 05/01/23 @ 11:37 by Felicita Monge MA) Smoking status: Never smoker Second hand tobacco smoke exposure: No Alcohol intake: former Substance use: never Lack of Transportation: No Lack of Food: Never True Current Housing: I Have Housing Concerned About Future Housing: No Difficulty Paying Gas/Electric Bills: No Difficulty Paying for Meds: No Currently Unemployed: No Education: Master's Degree or Higher Difficulty w/ Childcare or Family Care: No Living arrangements: with family Occupation/Education: unemployed Gender identity (if verbalized by the patient): Female Sexual Orientation (if Verbalized by the Patient): Straight or Heterosexual Spiritual care concerns: No Exam Narrative: GENERAL: Well-appearing, well-nourished, and in no acute distress. HEAD: Normocephalic, atraumatic. ENT: Mucous membranes moist. NECK: Supple. CHEST: Clear to auscultation. No respiratory distress. HEART: Regular rate and rhythm. Normal peripheral pulses. ABDOMEN: Soft, nontender, nondistended. EXTREMITIES: Normal range of motion. No edema. SKIN: Warm, dry, no rash. NEURO: Alert and oriented x3. PSYCH: Normal mood and affect. Course Course Emergency Course: Discussed ultrasound and lab findings with patient as well as her OB. The recommendation is for her to get repeat blood work tomorrow since she is leaving town [facility] in 2 days at 7:00 a.m. and cannot get any testing on that day. She has been educated there is no evidence of ectopic but there is likely an inevitable miscarriage occurring. Patient receiving RhoGAM. Discharge. Vital Signs Vital signs: Vital Signs Pulse Rate 78 11/25/23 15:13 Respira
--- NOTE | 2023-11-25 18:16 | PC.NURSE ---
Lab still waiting for antibody testing to result and will then alert RN when Rhogam med is available. Pt updated.
[2023-11-25] MEDS: RHO(D) IMMUNE GLOBULIN 300 MCG/2 ML SYRINGE IM (19:07)
[2023-11-25 19:13] VITALS: BP 115/72; PULSE 72; RESP 16; TEMP 36.4; O2SAT 100
== END 2023-11-25 19:16 | disposition home or self-care (01) ==
PROVIDERS: Emergency Provider Emergency Medicine; PCP Family Medicine
DX: O20.0 Threatened abortion (principal); Z3A.01 Less than 8 weeks gestation of pregnancy
CPT/HCPCS: 36415; 76801; 76817; 80053; 81001; 84702; 85025; 85461; 85610; 85730; 86850; 86880; 86900; 86901; 90384; 96372; 99284; J2790

== ENCOUNTER 2023-11-26 15:30 | Outpatient (RCR) | payer BC, SELFPAY | END 2024-02-24 23:59 | disposition home or self-care (01) | LOC: ANHOBOP 15:30 | PROVIDERS: PCP Family Medicine; Visit Provider Obstetrics & Gynecology | DX: O20.0 Threatened abortion (principal); Z3A.00 Weeks of gestation of pregnancy not specified | CPT/HCPCS: 36415; 84702 ==

== ENCOUNTER 2023-12-04 14:06 | Outpatient (CLI) | payer BC, SELFPAY ==
[2023-12-04 15:55] LABS: Beta HCG Quantitative 14.17 mIU/ML
== END 2023-12-04 14:07 | disposition home or self-care (01) ==
LOC: ANHLAB 14:07
PROVIDERS: PCP Family Medicine; Visit Provider Obstetrics & Gynecology
DX: O03.9 Complete or unspecified spontaneous abortion without complication (principal)
CPT/HCPCS: 36415; 84702

== ENCOUNTER 2024-02-12 14:30 | Outpatient (CLI) | payer BC, SELFPAY ==
[2024-02-14 01:42] LABS: Progesterone 6.3 ng/mL
== END 2024-02-12 14:31 | disposition home or self-care (01) ==
LOC: ANHLAB 14:30
PROVIDERS: PCP Family Medicine; Visit Provider Nurse Practitioner Family
DX: O20.9 Hemorrhage in early pregnancy, unspecified (principal); Z3A.00 Weeks of gestation of pregnancy not specified
CPT/HCPCS: 36415; 84144; 84702

== ENCOUNTER 2024-02-15 10:43 | Outpatient (CLI) | payer BC, SELFPAY ==
--- NOTE | ~2024-02-15 | US_ITS ---
EXAMINATION: US OB <=14 wk fetus w TV DATE: 02/15/2024 12:04 INDICATION: viability. Spotting. TECHNIQUE: Real-time transabdominal and transvaginal pelvic ultrasound was performed. COMPARISON: Ultrasound 11/25/2023 FINDINGS: TRANSABDOMINAL ULTRASOUND: The uterus measures 10.1 x 5.3 x 5.9 cm. TRANSVAGINAL ULTRASOUND: There is an intrauterine gestational sac. A yolk sac is identified. The fet al crown rump length measures 0.4 cm, which correlates with an estimated gestational age of 6 weeks a nd 1 day(s) (+/-) 4 day(s). heart motion is identified measuring 122 beats per minute (bpm) by M-mode Doppler. The right ovary measures 4.1 x 2.6 x 2.7 cm. The left ovary measures 3.5 x 1.7 x 2.9 cm. There is no free fluid in the pelvis. IMPRESSION: 1. Single living intrauterine gestation with estimated date of delivery of 10/09/2024. Reviewed, dictated and finalized at location A. IMPRESSION: 1. Single living intrauterine gestation with estimated date of delivery of 09/21.
== END 2024-02-15 10:44 | disposition home or self-care (01) ==
PROVIDERS: PCP Family Medicine; Visit Provider Nurse Practitioner Family
DX: O36.80X0 Pregnancy with inconclusive fetal viability, not applicable or unspecified (principal); Z87.59 Personal history of other complications of pregnancy, childbirth and the puerperium
CPT/HCPCS: 76801; 76817; 90384; 96372; J2790

== ENCOUNTER 2024-02-15 13:28 | Outpatient (RCR) | payer BC, SELFPAY ==
[2024-02-15] MEDS: RHO(D) IMMUNE GLOBULIN 300 MCG/2 ML SYRINGE IM (09:21)
== END 2024-02-15 13:30 | disposition home or self-care (01) ==
LOC: ANHLAB 13:28
PROVIDERS: PCP Family Medicine; Visit Provider Nurse Practitioner Family
DX: O36.0190 Maternal care for anti-D [Rh] antibodies, unspecified trimester, not applicable or unspecified (principal); Z3A.00 Weeks of gestation of pregnancy not specified
CPT/HCPCS: 36415; 84702; 85461; 86850; 86880; 86900; 86901; 86902; 90384; 96372; J2790

== ENCOUNTER 2024-03-12 15:51 | Outpatient (CLI) | payer BC, SELFPAY ==
[2024-03-12 16:20] LABS: Basophils Percent Auto 0.2 % (0.2-1.2); Eosinophils Absolute Auto 0.1 K/mm3 (0-0.3); Eosinophils Percent Auto 1.4 % (0-4.4); Hematocrit 40.6 % (37.0-47.0); Hemoglobin 14.1 g/dL (12.0-15.0); Immature Granulocyte Absolute 0.03 K/mm3 (0.00-0.031); Immature Granulocyte Percent A 0.3 % (0-0.5); Lymphocytes Absolute Auto 1.68 K/mm3 (0.9-3.2); Lymphocytes Percent Auto 17.2 % (18.3-44.2); Mean Corpuscular HGB Conc 34.7 g/dl (32-36); Mean Corpuscular Hemoglobin 31.1 pg (26-34); Mean Corpuscular Volume 89.4 fl (80-100); Mean Platelet Volume 10.9 fl (7.4-10.4); Monocytes Absolute Auto 0.7 K/mm3 (0.1-0.6); Monocytes Percent Auto 7.3 % (2.6-8.5); Neutrophils Absolute Auto 7.2 K/mm3 (1.3-6.7); Neutrophils Percent Auto 73.6 % (45.5-73.1); Platelet Count Result 176 k/mm3 (150-375); Red Blood Count 4.54 M/mm3 (4.2-5.4); Red Cell Distribution Width 12.6 % (11.5-14.5); White Blood Count 9.8 K/mm3 (4.5-10.0)
[2024-03-12 16:23] LABS: Appearance Urine Clear (Clear); Bilirubin Urine Negative (Negative); Blood Urine Negative (Negative); Color Urine Yellow (Yellow); Glucose Urine UA Negative (Negative); Ketones Urine Negative (Negative); Leukocyte Esterase Ur Negative LEU/UL (Negative); Nitrate Urine Negative (Negative); Protein Urine Negative (Negative); Specific Grav Ur 1.022 (1.001-1.035); Urobilinogen Urine 0.2 mg/dL (<2.0)
[2024-03-12 16:27] LABS: Add Urine Microscopic? NO
[2024-03-12 17:14] LABS: HIV 1/2 Ab P24 Ag Result Negative (Negative)
[2024-03-12 19:11] LABS: Hepatitis B Surface Antigen Negative (Negative); Rubella IgG Antibody 63.7 IU/ML
[2024-03-12 19:25] LABS: Hepatitis C Virus Antibody Negative (Negative)
[2024-03-13 11:57] LABS: Rapid Plasma Reagin Non-Reactive (NonReactive)
== END 2024-03-12 15:52 | disposition home or self-care (01) ==
LOC: ANHLAB 15:52
PROVIDERS: PCP Family Medicine; Visit Provider Obstetrics & Gynecology
DX: Z34.90 Encounter for supervision of normal pregnancy, unspecified, unspecified trimester (principal)
CPT/HCPCS: 36415; 81003; 85025; 86592; 86703; 86762; 86787; 86803; 86850; 86880; 86900; 86901; 87086; 87340; G0432

== ENCOUNTER 2024-06-26 10:24 | Outpatient (CLI) | payer BC, SELFPAY ==
[2024-06-26 11:55] LABS: Basophils Percent Auto 0.4 % (0.2-1.2); Eosinophils Absolute Auto 0.1 K/mm3 (0-0.3); Eosinophils Percent Auto 1.1 % (0-4.4); Hematocrit 36.6 % (37.0-47.0); Hemoglobin 12.6 g/dL (12.0-15.0); Immature Granulocyte Absolute 0.13 K/mm3 (0.00-0.031); Immature Granulocyte Percent A 1.4 % (0-0.5); Lymphocytes Absolute Auto 1.43 K/mm3 (0.9-3.2); Lymphocytes Percent Auto 15.2 % (18.3-44.2); Mean Corpuscular HGB Conc 34.4 g/dl (32-36); Mean Corpuscular Hemoglobin 32.6 pg (26-34); Mean Corpuscular Volume 94.6 fl (80-100); Mean Platelet Volume 10.2 fl (7.4-10.4); Monocytes Absolute Auto 0.8 K/mm3 (0.1-0.6); Monocytes Percent Auto 8.6 % (2.6-8.5); Neutrophils Absolute Auto 6.9 K/mm3 (1.3-6.7); Neutrophils Percent Auto 73.3 % (45.5-73.1); Platelet Count Result 152 k/mm3 (150-375); Red Blood Count 3.87 M/mm3 (4.2-5.4); Red Cell Distribution Width 13.6 % (11.5-14.5); White Blood Count 9.4 K/mm3 (4.5-10.0)
[2024-06-26 12:17] LABS: Glucose 1 Hour PP 50gm Dose 73 mg/dL
== END 2024-06-26 10:25 | disposition home or self-care (01) ==
LOC: ANHLAB 10:26
PROVIDERS: PCP Family Medicine; Visit Provider Nurse Practitioner Obstetrics & Gynecology
DX: Z34.90 Encounter for supervision of normal pregnancy, unspecified, unspecified trimester (principal)
CPT/HCPCS: 36415; 82947; 85025

== ENCOUNTER 2024-07-16 10:29 | Outpatient (RCR) | payer BC, SELFPAY ==
[2024-07-17] MEDS: RHO(D) IMMUNE GLOBULIN 300 MCG/2 ML SYRINGE IM (09:03)
== END 2024-10-14 23:59 | disposition home or self-care (01) ==
LOC: ANHLAB 10:29
PROVIDERS: PCP Family Medicine; Visit Provider Nurse Practitioner Obstetrics & Gynecology
DX: Z29.13 Encounter for prophylactic Rho(D) immune globulin (principal)
CPT/HCPCS: 36415; 85461; 86850; 86900; 86901; 90384; 96372; J2790

== ENCOUNTER 2024-08-16 10:42 | Outpatient (CLI) | payer BC, SELFPAY ==
[2024-08-16 10:57] LABS: Basophils Percent Auto 0.2 % (0.2-1.2); Eosinophils Absolute Auto 0.1 K/mm3 (0-0.3); Eosinophils Percent Auto 1.3 % (0-4.4); Hematocrit 39.2 % (37.0-47.0); Hemoglobin 13.4 g/dL (12.0-15.0); Lymphocytes Percent Auto 18.8 % (18.3-44.2); Mean Corpuscular HGB Conc 34.2 g/dl (32-36); Mean Corpuscular Hemoglobin 32.3 pg (26-34); Mean Corpuscular Volume 94.5 fl (80-100); Mean Platelet Volume 10.7 fl (7.4-10.4); Monocytes Absolute Auto 0.6 K/mm3 (0.1-0.6); Monocytes Percent Auto 6.6 % (2.6-8.5); Neutrophils Absolute Auto 6.9 K/mm3 (1.3-6.7); Neutrophils Percent Auto 72.1 % (45.5-73.1); Platelet Count Result 144 k/mm3 (150-375); Red Blood Count 4.15 M/mm3 (4.2-5.4); Red Cell Distribution Width 13.1 % (11.5-14.5); White Blood Count 9.6 K/mm3 (4.5-10.0)
[2024-08-16 11:47] LABS: HIV 1/2 Ab P24 Ag Result Negative (Negative)
[2024-08-16 12:39] LABS: Rapid Plasma Reagin Non-Reactive (NonReactive)
== END 2024-08-16 10:43 | disposition home or self-care (01) ==
LOC: ANHLAB 10:43
PROVIDERS: PCP Family Medicine; Visit Provider Nurse Practitioner Obstetrics & Gynecology
DX: Z34.90 Encounter for supervision of normal pregnancy, unspecified, unspecified trimester (principal)
CPT/HCPCS: 36415; 85025; 86592; 86703; G0432

== ENCOUNTER 2024-09-22 13:11 | Outpatient (RCR) | payer BC, SELFPAY ==
[2024-09-18 14:14] VITALS: BP 122/74; PULSE 90
[2024-09-22 14:15] VITALS: BP 110/62; PULSE 82
== END 2024-10-18 16:46 | disposition home or self-care (01) ==
LOC: ANHOBOP 13:11
PROVIDERS: PCP Family Medicine; Visit Provider Obstetrics & Gynecology
DX: O36.8310 Maternal care for abnormalities of the fetal heart rate or rhythm, first trimester, not applicable or unspecified (principal)
CPT/HCPCS: 59025

== ENCOUNTER 2024-09-30 15:43 | Inpatient (IN) | payer BC, SELFPAY ==
[2024-09-30] VITALS (68 sets, daily range): BP systolic 114–145; BP diastolic 52–112; PULSE 89–162; TEMP 36.8–37.3; O2SAT 98–100; BMI 25.7
--- NOTE | 2024-09-30 15:43 | LDADM ---
This patient, Latha Norris, was admitted to Labor/Delivery/Recovery 106 on 09/30/24 at 15:43. Plans for labor, pain management and were discussed with patient. Patient/family oriented to hospital policies and general routines including ID bracelet, bed and alarms, visiting hours, pain management, procedures, bathroom and other care routines, personal items, smoking policy, room service/diet and guest tray routines, security routines, and visiting hours. Patient/Family are encouraged to report perceived risks to care and to ask questions if they do not understand what they are told or what they should do. See OBIX for further documentation.
--- OUTSIDE RECORDS SUMMARY | 2024-09-30 16:29 | XMS_ITS | Clinical Summary ---
Author Organization [facility] Address [address] [place] [phone] Phone Care Team Providers Care Cattle Tester Name Role Phone Unavailable Primary Care Provider Unavailabl e Encounters Date Type Department Care Team Description 09/12/2024 8:56 AM RIBBON CUTTER - 09/12/2024 11:59 PM RIBBON CUTTER Hospital Encounter [facility] Susan Roque [address] [place] [phone] Anupama Bartlett MD Discharge Disposition: Home or Self Care 09/12/2024 External Device Data STL ABSTRACTION Provider, Abstract 09/10/2024 External Device Data STL ABSTRACTION Provider, Abstract 09/03/2024 External Device Data STL ABSTRACTION Provider, Abstract 08/12/2024 9:00 AM RIBBON CUTTER - 08/12/2024 11:59 PM RIBBON CUTTER Hospital Encounter [facility] Susan Roque [address] [place] [phone] Carson Kelly MD Discharge Disposition: Home or Self Care 07/15/2024 9:00 AM RIBBON CUTTER - 07/15/2024 11:59 PM RIBBON CUTTER Hospital Encounter [facility] Susan Roque [address] [place] [phone] Tatiana Marshall MD Discharge Disposition: Home or Self Care from Last 3 Months Social History Tobacco Use Types Packs/Day Years Used Date Smoking Tobacco: Never Assessed Comments Unknown Sex and Gender Information Value Date Recorded Sex Assigned at Not on file Legal Sex Female 1:38 PM CDT Gender Identity Not on file Sexual Orientation Not on file Plan of Treatment Health Maintenance Due Date Last Done Comments DTAP/TDAP/TD VACCINES (1 - Tdap) 2009 HEPATITIS B VACCINES (1 of 3 - 19+ 3-dose series) 2009 CERVICAL CANCER SCREENING 2020 INFLUENZA VACCINE (#1) 2024 06/04/2019 HPV VACCINES Aged Out No longer eligi ble based on patient's age to complete this topic Procedures Procedure Name Priority Date/Time Associated Diagnosis Comments US OB FOLLOW UP PER FETUS Routine 09/12/2024 9:21 AM RIBBON CUTTER Marginal insertion of umbilical cord affecting management of mother in third trimester US OB FOLLOW UP PER FETUS Routine 08/12/2024 9:27 AM RIBBON CUTTER Marginal insertion of umbilical cord affecting management of mother US OB FOLLOW UP PER FETUS Routine 07/15/2024 9:36 AM RIBBON CUTTER Marginal insertion of umbilical cord affecting management of mother from Last 3 Months Results * US OB FOLLOW UP PER FETUS (09/12/2024 9:21 AM RIBBON CUTTER) Only the most recent of3 resultswithin the time period is included. Anatomical Region Laterality Modality Pelvis Ultrasound 09/12/2024 9:01 AM RIBBON CUTTER Narrative 09/12/2024 9:42 AM RIBBON CUTTER STL FOLLOW UP ----- Pat. Name: ALFREDO CHUNG Study Date: 09/12/2024 9:01am Pat. NO: [id number] Referring MD: LORETA GARBER MD Site: [facility] [employer] Operator: Josephine Montejo RDMS : 1990 Age: 34 ----- INDICATION ----- Screening Follow-Up Screening, Other Specified Marginal Cord Insertion CODING ----- Diagnoses Z3A.36: Weeks of gestation Z36.89: Encounter to establish gestational age using ultrasound Z36.3: Encounter for screening for malformations Z3A.36: Weeks of gestation O69.89X0: Labor and delivery complicated by other cord complications Z36.2: Encounter for other screening follow-up Procedures 78045: Ultrasound, uterus, real time with image documentation, follow up, transabdominal approach per fetus HISTORY ----- OB History 5. Para 2 T2A2L2 METHOD ----- Transabdominal ultrasound examination ----- Howe . Number of fetuses: 1 DATING ----- Cycle: regular cycle GA by prior assessment 36 w + 6 d EBENEZER by prior assessment: 10/04/2024 Ultrasound examination on: 09/12/2024 GA by U/S based upon: AC, BPD, EFW, Femur, HC GA by U/S 36 w + 6 d EBENEZER by U/S: 10/04/2024 Method of dating: Restore dating from previous exam Assigned: based on stated EBENEZER, selected on 06/03/2024 Assigned GA 36 w + 6 d Assigned EBENEZER: 10/04/2024 BIOMETRY ----- BPD 91.3 mm 37w 0d 69% Hadlock OFD 112.9 mm 38w 3d 70% Steven HC 324.7 mm 36w 5d 21% Hadlock AC 328.8 mm 36w 6d 62% Hadlock Femur 71.8 mm 36w 5d 46% Hadlock HC / AC 0.99 35% Nicolaides Weight Calculation: EFW 3,039 g 37w 0d 54% Hadlock EFW (lb,oz) 6 lb 11 oz EFW by Hadlock ([id number]) Extremities / Bony Struc Biometry: FL / BPD 0.79 FL / HC 0.22 FL / AC 0.22 GENERAL EVALUATION ----- Cardiac activity present. FHR 130 bpm. movements: present. Presentation: cephalic Placenta: Placental site: anterior Umbilical cord: Cord vessels: 3 vessel cord. Insertion site: placental insertion: normal Amniotic fluid: Amount of AF: normal amount. MVP 5.7 cm. PARTH 18.6 cm. Q1 5.7 cm, Q2 4.2 cm, Q3 5.3 cm, Q4 3.4 cm ANATOMY ----- The following structures appear normal: Head / Neck Cranium. Cavum septi pellucidi. Heart / Thorax 4-chamber view. RVOT view. LVOT view. Diaphragm. Abdomen Stomach. Kidneys. Bladder. GROWTH OVERVIEW ----- Exam date GA BPD (mm) HC (mm) AC (mm) FL (mm) HL (mm) EFW (g) 06/03/2024 22w 3d 52.0 22% 199.1 23% 178.7 52% 39.0 43% 37.6 71% 514 48% 07/15/2024 28w 3d 73.5 72% 270.7 52% 242.0 44% 54.0 39% 1,266 46% 08/12/2024 32w 3d 83.1 72% 295.5 19% 282.1 44% 62.1 31% 1,960 38% 09/12/2024 36w 6d 91.3 69% 324.7 21% 328.8 62% 71.8 46% 3,039 54% COMMENT ----- Patient's name and date of were verified by the private tutor prior to the exam IMPRESSION ----- IUP at 36w 6d cephalic presentation AGA growth with EFW 3039 g (54%) with appropriate interval growth Normal amniotic fluid volume, PARTH 18.6 cm, MVP 5.7 cm Known marginal cord insertion Recommendations: - Follow up as clinically indicated Procedure Note Radha Gaytan MD - 09/12/2024 STL FOLLOW UP ----- Pat. Name:Wei CHUNG Date:09/12/2024 9:01am Pat. NO: [id number] MD:LORETA GARBER [facility]Josephine Montejo RDMS :1990Age:34 ----- INDICATION ----- Screening Follow-Up Screening, Other Specified Marginal Cord Insertion CODING ----- Diagnoses Z3A.36: Weeks of gestation Z36.89: Encounter to establish gestational ageusing ultrasound Z36.3: Encounter for screening formalformations Z3A.36: Weeks of gestation O69.89X0: Labor and delivery complicated by othercord complications Z36.2: Encounter for other screeningfollow-up Procedures 14520: Ultrasound, uterus, real time withimage documentation, follow up, transabdominal approach per fetus HISTORY ----- OB History 5. Para 2 T2A2L2 METHOD ----- Transabdominal ultrasound examination ----- Howe . Number of fetuses: 1 DATING ----- Cycle:regular cycle GA by prior [id number] w + 6 d EBENEZER by prior assessment:10/04/2024 Ultrasound examination on:09/12/2024 GA by U/S based upon:AC, BPD, EFW, Femur, HC GA by U/S36 w + 6 d EBENEZER by U/S:10/04/2024 Method of dating:Restore dating from previous exam Assigned:based on stated EBENEZER, selected on 06/03/2024 Assigned GA36 w + 6 d Assigned EBENEZER:10/04/2024 BIOMETRY ----- BPD 91.3 mm 37w 0d 69%Hadlock OFD 112.9 mm 38w 3d 70%Steven HC 324.7 mm 36w 5d 21%Hadlock AC 328.8 mm 36w 6d 62%Hadlock Femur 71.8 mm 36w 5d 46%Hadlock HC / AC 0.99 35%Nicolaides Weight Calculation: EFW 3,039 g 37w 0d54% Hadlock EFW (lb,oz) 6 lb 11 oz EFW by Hadlock ([id number]) Extremities / Bony Struc Biometry: FL / BPD 0.79 FL / HC 0.22 FL / AC 0.22 GENERAL EVALUATION ----- Cardiac activity present. FHR 130 bpm. movements: present.Presentation: cephalic Placenta: Placental site: anterior Umbilical cord: Cord vessels: 3 vessel cord. Insertion site: placentalinsertion: normal Amniotic fluid: Amount of AF: normal amount. MVP 5.7 cm. PARTH 18.6 cm. Q15.7 cm, Q2 4.2 cm, Q3 5.3 cm, Q4 3.4 cm ANATOMY ----- The following structures appear normal: Head / Neck Cranium. Cavum septi pellucidi. Heart / Thorax 4-chamber view. RVOT view. LVOT view. Diaphragm. Abdomen Stomach. Kidneys. Bladder. GROWTH OVERVIEW ----- Exam date GA BPD (mm) HC (mm) AC (mm) FL(mm) HL (mm) EFW (g) 06/03/2024 22w 3d 52.0 22% 199.1 23% 178.7 52%39.0 43% 37.6 71% 514 48% 07/15/2024 28w 3d 73.5 72% 270.7 52% 242.0 44%54.0 39% 1,266 46% 08/12/2024 32w 3d 83.1 72% 295.5 19% 282.1 44%62.1 31% 1,960 38% 09/12/2024 36w 6d 91.3 69% 324.7 21% 328.8 62%71.8 46% 3,039 54% COMMENT ----- Patient's name and date of were verified by the private tutor prior tothe exam IMPRESSION ----- IUP at 36w 6d cephalic presentation AGA growth with EFW 3039 g (54%) with appropriate interval growth Normal amniotic fluid volume, PARTH 18.6 cm, MVP 5.7 cm Known marginal cord insertion Recommendations: - Follow up as clinically indicated us Anupama Bartlett MD US ORDERABLES Final Result from Last 3 Months Insurance [facility] BLUE ACCESS CHOICE
--- OUTSIDE RECORDS SUMMARY | 2024-09-30 16:29 | XMS_ITS | Clinical Summary ---
Author Organization [facility] Address [address] [place] [address] Phone Care Team Providers Care Syruper Name Role Phone Kenney Ayers MD Primary Care Provider [phone] Allergies Active Allergy Reactions Criticality Noted Date Comments Sulfa Antibiotics Shortness of Breath,Nausea High Wound Dressing Adhesive Rash Medium 04/09/2021 Medications Multiple Vitamins-Mineral s (MULTIVITAMIN PO) Take 1 Cap by mouth daily. Active Active Problems Problem Noted Date Diagnosed Date B12 deficiency 06/20/2019 Vitamin D insufficiency 06/20/2019 Fatigue 06/20/2019 Ear discharge, left 06/20/2019 Seborrheic dermatitis of scalp 06/20/2019 Immunizations Immunization Administration Dates Next Due Influenza Vaccine greater than 3 yrs 06/04/2019 Family History Medical History Relation Name Comments Diabetes Father Stroke Father Hypertension Mother Relation Name Status Comments Father Alive Mother Alive Social History Tobacco Use Types Packs/Day Years Used Date Smoking Tobacco: Never Smokeless Tobacco: Never Tobacco Cessation:Counseling Given: Yes Alcohol Use Standard Drinks/Week Comments Not Currently 0 (1 standard drink = 0.6 oz pur e alcohol) PHQ-2 Answer Date Recorded PHQ-2 Score 0 06/20/2019 Comments No Sex and Gender Information Value Date Recorded Sex Assigned at Not on file Legal Sex Female 12:04 AM CDT Gender Identity Not on file Sexual Orientation Not on file Last Filed Vital Signs Vital Sign Reading Time Taken Comments Blood Pressure 92/62 10/31/2022 2:38 PM CDT Pulse 100 10/31/2022 2:38 PM CDT Temperature 36.6 C (97.9 F) 10/31/2022 2:38 PM CDT Respiratory Rate 16 10/31/2022 2:38 PM CDT Oxygen Saturation 55% 10/31/2022 2:38 PM CDT Inhaled Oxygen Concentration - - Weight 57.6 kg (127 lb) 10/31/2022 2:38 PM CDT Height 165.1 cm (5' 5 ) 10/31/2022 2:38 PM CDT Body Mass Index 21.13 10/31/2022 2:38 PM CDT Plan of Treatment Health Maintenance Due Date Last Done Comments Hepatitis C Virus (HCV) Screening 1990 Hepatitis B Immunization (1 of 3 - 19+ 3-dose series) 2009 Pap Smear 2011 Cervical Cancer Screening (CCS) 2020 HPV/Cotest 2020 Influenza Immunization (#1) 04/21/202405/22, 06/20/2020, 06/04/2019 SARS-COV-2 Immunization ( season) 2024 09/13/2021, 08/23/2021 Respiratory Syncytial Virus (RSV) Immunization (Adult) (1 - 1-dose 75+ series) 2065 DTaP/Tdap/Td Immunization Discontinued 2021, 11/02/2020 TdaP Immunization Completed 06/13/2022, 11/02/2020 Meningococcal Immunization (ACWY) Aged Out No longer eligible based on patient's age to complete this topic Pneumococcal Immunization Combined Aged Out No longer eligible based on patient's age to complete this topic Rotavirus Immunization Aged Out No lo nger eligible based on patient's age to complete this topic Procedures Procedure Name Priority Date/Time Associated Diagnosis Comments HIV TEST 08/16/2024 12:00 AM PRIVATE ADVISOR LAB - MISCELLANEOUS 08/16/2024 1 2:00 AM PRIVATE ADVISOR COMPLETE BLOOD COUNT (CBC) WITH DIFF 08/16/2024 12:00 AM PRIVATE ADVISOR from Last 3 Months Results * HIV TEST (08/16/2024 12:00 AM PRIVATE ADVISOR) 08/16/2024 us Provider Scan HEMATOLOGY ORDERABLES Final Resu lt SCAN * LAB - MISCELLANEOUS (08/16/2024 12:00 AM PRIVATE ADVISOR) 08/16/2024 us Provider Scan CHEMISTRY ORDERABLES Final Resul t SCAN * COMPLETE BLOOD COUNT (CBC) WITH DIFF (08/16/2024 12:00 AM PRIVATE ADVISOR) 08/16/2024 us Provider Scan HEMATOLOGY ORDERABLES Final Resu lt SCAN from Last 3 Months Insurance [facility] Care Teams Syruper Relationship Specialty Start Date End Date Kenney Ayers MD #[address] [place] [phone] PCP - General Family Medicine 10/31/22
[2024-09-30] MEDS: LACTATED RINGERS 1,000 ML 125 ML IV CONT ×2 (16:35→17:35)
--- NOTE | 2024-09-30 16:38 | P.HP_ITS ---
H&P: HPI History of Present Illness Date/Time: 09/30/24 16:38 Chief Complaint: Contractions Narrative: She presented to L and D with c/o contractions. Her cervix was dilated to 4cm which was a change from prior exam. PNC uncomplicated. Review of Systems Review of Systems: All systems reviewed & are unremarkable except as noted in HPI and below Constitutional: Constitutional: Reports no additional constitutional complaints and Denies headache(s) Eyes: Eyes: Denies spots in vision ENT: Reports system reviewed and no additional complaints, except as documented and Denies headache(s) Cardiovascular: Cardiovascular: Denies chest pain and Denies dyspnea Respiratory: Respiratory: Denies dyspnea Gastrointestinal: Gastrointestinal: Reports no additional gastrointestinal complaints Genitourinary: Genitourinary: Reports amenorrhea Musculoskeletal: Musculoskeletal: Reports no additional musculoskeletal complaints Integumentary/Breasts: Skin/Breast: Denies breast mass and Denies rash Neurologic: Denies headache(s) Psychiatric: Psychiatric: Reports no additional psychiatric complaints [facility] Past Medical History Medical History Vaginal delivery x1 Anxiety Gestational hypertension Surgical History Surgical History History of hemorrhoidectomy History of tonsillectomy Family History Family History Father Diabetes mellitus Hypertension Cerebrovascular accident Congestive heart failure Mother Endometriosis Hyperglycemia Osteoporosis Hypotension Social History Social History Smoking status: Never smoker Second hand tobacco smoke exposure: No Alcohol intake: former Substance use: never Lack of Transportation: No Lack of Food: Never True Current Housing: I Have Housing Concerned About Future Housing: No Difficulty Paying Gas/Electric Bills: No Difficulty Paying for Meds: No Currently Unemployed: No Education: Master's Degree or Higher Difficulty w/ Childcare or Family Care: No Living arrangements: with family Occupation/Education: unemployed Gender identity (if verbalized by the patient): Female Sexual Orientation (if Verbalized by the Patient): Straight or Heterosexual Spiritual care concerns: No Meds Home Medications and Allergies Home Medications ?Medication ?Instructions ?Recorded ?Confirmed ?Type docosahexaenoic acid 200 mg 200 mg PO DAILY 12/17/20 09/25/24 History capsule ( DHA) RSV vac, preF A and preF B(PF) 120 0.5 ml IM ONCE #1 ea 07/31/24 09/25/24 Rx mcg/0.5 mL IM solution (Abrysvo (PF)) aspirin 81 mg tablet,delayed 81 mg PO DAILY 09/18/24 09/25/24 History release Allergies Allergy/AdvReac Type Severity Reaction Status Date / Time trimethoprim Allergy Intermediate Hives Verified 09/25/24 08:48 Sulfa (Sulfonamide Allergy Unknown shortness Verified 09/25/24 08:48 Antibiotics) of breath, sweating, nausea adhesive tape Allergy Blister Verified 09/25/24 08:48 Vital Signs Vital Signs - 24 hr 09/30/24 16:00 09/30/24 16:15 09/30/24 16:23 Temperature 99.2 F Pulse Rate 91 94 Blood Pressure 127/77 126/74 09/30/24 16:30 Temperature Pulse Rate 89 Blood Pressure 126/80 Exam Const: General: no acute distress Eyes: General: appearance normal, both eyes and all related structures Resp: Effort & Inspection: normal respiratory effort Cardio: Rate: regular rate GI: Other: Gravid no fundal tenderness no right upper quadrant pain Skin: General skin exam: no rashes or lesions noted Neuro: Cognition (Neuro): normal cognition Extrem: General: normal to inspection Psych: Mental Status: mental status grossly normal Assessment and Plan Assessment and plan (1) Labor without complication: Code(s): O80 - Encounter for full-term uncomplicated delivery Status: Acute Assessment and Plan: 1. Admit 2. Expectant management.
[2024-09-30 17:01] LABS: Basophils Percent Auto 0.3 % (0.2-1.2); Eosinophils Percent Auto 0.3 % (0-4.4); Hematocrit 41.1 % (37.0-47.0); Hemoglobin 14.1 g/dL (12.0-15.0); Immature Granulocyte Absolute 0.12 K/mm3 (0.00-0.031); Lymphocytes Absolute Auto 1.96 K/mm3 (0.9-3.2); Lymphocytes Percent Auto 16.5 % (18.3-44.2); Mean Corpuscular HGB Conc 34.3 g/dl (32-36); Mean Corpuscular Volume 93.4 fl (80-100); Mean Platelet Volume 12.1 fl (7.4-10.4); Monocytes Percent Auto 8.2 % (2.6-8.5); Neutrophils Absolute Auto 8.8 K/mm3 (1.3-6.7); Neutrophils Percent Auto 73.7 % (45.5-73.1); Platelet Count Result 157 k/mm3 (150-375); Red Cell Distribution Width 13.2 % (11.5-14.5); White Blood Count 11.9 K/mm3 (4.5-10.0)
[2024-09-30 17:21] LABS: Rapid Plasma Reagin Non-Reactive (NonReactive)
[2024-09-30 17:52] LABS: HIV 1/2 Ab P24 Ag Result Negative (Negative)
--- NOTE | 2024-09-30 17:59 | P.PNAN_ITS ---
Anes - Eval Pre Procedure Procedure: labor epidural Date/Time: 09/30/24 17:59 Surgeon: melody Preop Diagnosis: pain during labor Pre Op Diagnosis: contractions Patient Data Age: 34 Gender: F Height: 1.65 m Weight: 70 kg Last Vital Signs Temp 37.3 C 09/30/24 16:23 Pulse 98 09/30/24 17:56 BP 129/74 09/30/24 17:56 Pulse Ox 100 09/30/24 17:57 O2 Del Method Room Air 09/30/24 17:48 Allergies Allergy/AdvReac Type Severity Reaction Status Date / Time trimethoprim Allergy Intermediate Hives Verified 09/25/24 08:48 Sulfa (Sulfonamide Allergy Unknown shortness Verified 09/25/24 08:48 Antibiotics) of breath, sweating, nausea adhesive tape Allergy Blister Verified 09/25/24 08:48 Home Medications ?Medication ?Instructions ?Recorded ?Confirmed ?Type docosahexaenoic acid 200 mg 200 mg PO DAILY 12/17/20 09/30/24 History capsule ( DHA) RSV vac, preF A and preF B(PF) 120 0.5 ml IM ONCE #1 ea 07/31/24 09/25/24 Rx mcg/0.5 mL IM solution (Abrysvo (PF)) Laboratory Tests 09/30/24 16:45 WBC 11.9 H K/mm3 (4.5-10.0) RBC 4.40 M/mm3 (4.2-5.4) Hgb 14.1 g/dL (12.0-15.0) Hct 41.1 % (37.0-47.0) MCV 93.4 fl (80-100) MCH 32.0 pg (26-34) MCHC 34.3 g/dl (32-36) RDW 13.2 % (11.5-14.5) Plt Count 157 k/mm3 (150-375) MPV 12.1 H fl (7.4-10.4) Immature Gran % (Auto) 1.0 H % (0-0.5) Neut % (Auto) 73.7 H % (45.5-73.1) Lymph % (Auto) 16.5 L % (18.3-44.2) [place] % (Auto) 8.2 % (2.6-8.5) Eos % (Auto) 0.3 % (0-4.4) Baso % (Auto) 0.3 % (0.2-1.2) Lymph # (Auto) 1.96 K/mm3 (0.9-3.2) [place] # (Auto) 1.0 H K/mm3 (0.1-0.6) Eos # (Auto) 0.0 K/mm3 (0-0.3) Baso # (Auto) 0.0 K/mm3 (0.0-0.1) Abs Immat Gran (auto) 0.12 H K/mm3 (0.00-0.031) Absolute Neuts (auto) 8.8 H K/mm3 (1.3-6.7) Absolute Nucleated RBC 0.000 K/mm3 (0.0-0.012) Nucleated RBC % 0.0 % (0.0-0.2) RPR Non-reactive (NonReactive) HIV 1&2 Ab/P24 Ag 4thGn Negative (Negative) Blood Type O Negative Antibody Screen Positive Antibody Identification Pending Antigen Identification Pending PURA, IgG Interpret Pending PURA, Poly Interpret Pending PURA, Complement Interp Pending Patient hx anesthesia problems: none Family hx anesthesia problems: none Results Review: All pre-operative results and documents have been reviewed as part of the pre- operative evaluation. [facility] Past Medical History Medical History Vaginal delivery x1 Anxiety Gestational hypertension Surgical History Surgical History History of hemorrhoidectomy History of tonsillectomy Family History Family History Father Diabetes mellitus Hypertension Cerebrovascular accident Congestive heart failure Mother Endometriosis Hyperglycemia Osteoporosis Hypotension Social History Social History Smoking status: Never smoker Second hand tobacco smoke exposure: No Alcohol intake: former Substance use: never Do You Feel Safe in your Home?: Yes Lack of Transportation: No Lack of Food: Never True Current Housing: I Have Housing Concerned About Future Housing: No Difficulty Paying Gas/Electric Bills: No Difficulty Paying for Meds: No Currently Unemployed: No Education: Master's Degree or Higher Difficulty w/ Childcare or Family Care: No Living arrangements: with family Occupation/Education: unemployed Gender identity (if verbalized by the patient): Female Sexual Orientation (if Verbalized by the Patient): Straight or Heterosexual Spiritual care concerns: No Exam Day of Procedure 09/30/24 17:59
[2024-09-30] MEDS: ONDANSETRON INJ 4 MG/2 ML VIAL IV PUSH (18:00)
--- NOTE | 2024-09-30 18:30 | PM.OBPNLAB ---
Pain Control Date/time seen: 09/30/24 18:30 Comments: fht 120, cat1, AROM blood tinged, /1. Continue expectant management.
--- NOTE | 2024-09-30 22:02 | PC.NURSE ---
Patient transferred to post room #285 via ( W/C ). Support person present. Oriented to unit, room, information board, rooming in, admission packet and security measures. Patient verbalizes understanding.
[2024-10-01 00:58] VITALS: BP 114/58; PULSE 82; RESP 16; TEMP 36.9; O2SAT 97
[2024-10-01] MEDS: IBUPROFEN 600 MG TABLET PO ×3 (04:24→19:52)
[2024-10-01 04:46] VITALS: BP 109/68; PULSE 71; RESP 16; TEMP 36.6; O2SAT 97
[2024-10-01 05:23] LABS: Hematocrit 38.5 % (37.0-47.0); Hemoglobin 13.1 g/dL (12.0-15.0)
--- NOTE | 2024-10-01 06:52 | PM.OBPRVD ---
OB - Vaginal Delivery Note Procedure Delivery date: 10/01/24 Induction method: None Delivery augmentation: Rupture of Membranes (AROM) Delivery monitor: External FHT Route of delivery: Episiotomy description: None Laceration Description: None Specimen: No Quantitative Blood Loss (ml): 150 Anesthesia type: Epidural Disposition: Floor Complications: No immediate complications Narrative: She was admitted in active labor. She had epidural placed on request. She was progressing rapidly. She had AROM after epidural. She dilated to complete and delivered a female over intact perineum. 's nose and mouth suctioned with bulb at perineum. The rest of the infant was delivered and placed on maternal abdomen vigorously crying. Delayed cord clamping for a minute. Cord doubly clamped and cut. Pitocin started. Placenta delivered spontaneously and intact. Baby Date of : 10/01/24 Time of : 19:21 Gestational Age by Date: 39 Infant gender: Female Weight (pounds): 7 Weight (ounces): 4 presentation: vertex position: Right Occiput Anterior Placenta delivery description: Spontaneous Cord Vessel Description: 3 Vessels, Clamped/Cut and Delayed Cord Clamping score one minute: 8 score five minutes: 8
[2024-10-01 08:00] VITALS: BP 118/73; PULSE 78; RESP 18; TEMP 35.9; O2SAT 96
[2024-10-01] MEDS: MULTIVIT/MIN/PREN/FOL AC/IRON TABLET 1 TAB PO (08:01)
[2024-10-01] MEDS: DOCUSATE SODIUM 100 MG CAPSULE PO (08:01)
[2024-10-01] MEDS: ACETAMINOPHEN 325 MG TABLET 650 MG PO ×2 (08:01→14:58)
--- NOTE | 2024-10-01 08:05 | PC.NURSE ---
Introductions were made, then consulted with patient to assess needs related to . Discussed with mother her?plans to feed?her and the?experience so far. She feels like baby is latching well. Baby tires after one breast and we reviewed that is typical with newborns and we want to feed on demand. A good rule of thumb is to feed about every 3 hours for about 15 minutes. She breastfed her first child for 1 year. Resources provided for inpatient and outpatient services with the feeding sheet, mom/baby guide and name/number written on the communication board. Mother voiced understanding of information and will call if there is a request for assistance. Reported to the Primary RN.
--- NOTE | 2024-10-01 14:36 | WPDANLDPN2 ---
Anes-Prog Note L&D Date/Time: 10/01/24 14:36 Comfortable throughout: labor and delivery Neuraxial method: epidural Epidural/Spinal procedure site: clean & non-tender Neuro status: Neuro function grossly intact. Cardiovascular status: normal Respiratory status: normal Airway patency: baseline Mental status: baseline Post-Op hydration status: normal Vital Signs: Last Vital Signs Temp 96.7 F L 10/01/24 08:00 Pulse 78 10/01/24 08:00 Resp 18 10/01/24 08:00 BP 118/73 10/01/24 08:00 Pulse Ox 96 10/01/24 08:00 O2 Del Method Room Air 10/01/24 00:58 Pain score (VAS): 0/10 I/O: Intake & Output 09/30/24 10/01/24 10/01/24 23:59 07:59 15:59 Intake Total 1000 0 Output Total 100 Balance 900 0 Post-procedural complaints: none Patient feedback: Patient satisfied with anesthetic care.
[2024-10-01] MEDS: RHO(D) IMMUNE GLOBULIN 300 MCG/2 ML SYRINGE IM (15:00)
--- NOTE | 2024-10-01 16:09 | P.PNOB_ITS ---
OB - PN: Subj Subjective Date/time seen: 10/01/24 16:09 Patient comments: pain well controlled, tolerating diet and other (Decreasing lochia.) baby status: doing well and nursing well [place] feeding status: exclusively breast feeding OB - PN: Obj Data Labs 10/01/24 05:02 Labs: Laboratory Results - last 24 hr 09/30/24 10/01/24 16:45 05:02 WBC 11.9 H RBC 4.40 Hgb 14.1 13.1 Hct 41.1 38.5 MCV 93.4 MCH 32.0 MCHC 34.3 RDW 13.2 Plt Count 157 MPV 12.1 H Immature Gran % (Auto) 1.0 H Neut % (Auto) 73.7 H Lymph % (Auto) 16.5 L [place] % (Auto) 8.2 Eos % (Auto) 0.3 Baso % (Auto) 0.3 Lymph # (Auto) 1.96 [place] # (Auto) 1.0 H Eos # (Auto) 0.0 Baso # (Auto) 0.0 Abs Immat Gran (auto) 0.12 H Absolute Neuts (auto) 8.8 H Absolute Nucleated RBC 0.000 Nucleated RBC % 0.0 RPR Non-reactive HIV 1&2 Ab/P24 Ag 4thGn Negative Blood Type O Negative O Negative Antibody Screen Positive Negative Antibody Identification Inconclusive Antigen Identification Cancelled PURA, IgG Interpret Neg PURA, Poly Interpret TNP PURA, Complement Interp Negative Screen Negative Baby's Blood Type B pos Baby's PURA Positive Doses of RhIg Required 1 OB - PN A/P Assessment and Plan (1) Delivery normal: Code(s): O80 - Encounter for full-term uncomplicated delivery Status: Acute Plan day: 1 Plan: routine care Comments: Patient doing well. Time Spent With Patient Time: Total time spent is greater than 50% in coordination of care (as documented) at patient's floor/unit and/or counseling patient: Exam 2 Psych: Affect: normal affect Other: Abd: fundus firm below umbilicus, nontender Ext: nontender
[2024-10-01 16:30] VITALS: BP 98/51; PULSE 80; RESP 16; TEMP 36.7; O2SAT 98
--- NOTE | 2024-10-01 17:10 | PC.NURSE ---
Met with patient to see how feedings have gone today since she has not called for assistance. She has some nipple tenderness with initial latch on but not pain throughout the feeding. She states that baby consistently nurses well from one breast at each feeding. We discussed expectation for cluster feeding tonight and to offer the breast on demand. We reviewed normal infant weight loss. Mom is encouraged to call out for assistance as needed. Will review discharge care plan tomorrow morning. Patient declines further questions or concerns at this time.
[2024-10-01 19:30] VITALS: BP 110/68; PULSE 81; RESP 16; TEMP 36.9; O2SAT 99
[2024-10-02] MEDS: IBUPROFEN 600 MG TABLET PO (07:08)
[2024-10-02] MEDS: MULTIVIT/MIN/PREN/FOL AC/IRON TABLET 1 TAB PO (07:08)
[2024-10-02 07:21] VITALS: BP 102/65; PULSE 72; RESP 16; TEMP 36.6; O2SAT 98
[2024-10-02 07:39] VITALS: BP 102/65; PULSE 72; RESP 16; TEMP 36.6; O2SAT 98
--- NOTE | 2024-10-02 08:30 | PC.NURSE ---
Consulted with mother concerning needs and she shared her ability to independently latch infant optimally without pain. Mother is feeding appropriately for growth of and understands stimulating to eat if needed. Infant has had appropriate feedings in the last 24 hours meets the outcomes for weight, output, blood sugar and jaundice at this time. Reinforced understanding of milk production, transition of milk, signs of adequate intake, transition of stool, prevention/relief of engorgement, plugged ducts, mastitis, responsive watching for feeding cues, the different methods of stimulating to breastfeed 1-3 hours after the start of the last feeding, community resources, and when to call a provider using the resource of the feeding sheet along with the mom and baby guide. Mother voiced understanding of the information shared, is confident to continue effectively her infant at home, when to call for assistance, denies any additional assistance or education at this time. Reported to the Primary RN.
--- NOTE | 2024-10-02 08:41 | PC.NURSE ---
On 10/02/24, the student, Annia Burgos, provided care and completed [facility] documentation on this patient. I have reviewed the student's documentation and agree with the findings.
[2024-10-03 11:18] VITALS: PULSE 91; RESP 18; TEMP 36.5; O2SAT 100
== END 2024-10-02 11:02 | disposition home or self-care (01) | DRG 807 ==
LOC: ANHLDR 16:27 → ANHOB2 23:27
PROVIDERS: Admitting Provider Obstetrics & Gynecology; Visit Provider Obstetrics & Gynecology
DX: O80 Encounter for full-term uncomplicated delivery (principal); Z37.0 Single live birth; Z3A.39 39 weeks gestation of pregnancy
CPT/HCPCS: 36415; 85014; 85018; 85025; 85461; 86592; 86703; 86850; 86880; 86900; 86901; 86902; 90384; A9270; G0432; J2405; J2790; J2795; J7120